=== PATIENT | male | born 1940 | race Asian ===

== ENCOUNTER 2019-05-19 14:28 | Inpatient (IN) | payer MEDICARE, OTHER ==
[~2019-05-19] VITALS: Ht 167.6 cm; Wt 67.1 kg
--- NOTE | 2019-05-19 14:32 | NUR ---
ED Nurse Note: PT BROUGHT IN BY R34 FROM PT'S PMD OFFICE. AOX4. PT C/O NAUSEA AND 3-5 EPISODES OF VOMITING X THIS AM. PT STATES HE WAS SENT TO ER "FOR SURGERY" BUT WHEN ASKED FOR WHAT, PT IS NOT AWARE. PT DENIES ABDOMINAL PAIN AT THIS TIME. ABDOMEN DOES NOT APPEAR DISTENDED AND BUT C/O TENDERNESS TO PALPATION IN LLQ. PT DENIES DIARRHEA. LAST BM X THIS AM WHICH PT STATES WAS FORMED. PER EMS, PT HAS HISTORY OF SUBSTANCE AND ALCOHOL ABUSE. PT STATES LAST ALCOHOL CONSUMPTION WAS 4 DAYS AGO. PER EMS, ORAL TEMP 102.0F. TEMP AT BEDSIDE, 99.4F. PT TACHYCARDIC - HR: 124, RR34, O2SAT: 88%. PT PLACED ON 4L O2 VIA NASAL CANNULA. RR30, O2 SAT: 97% ON 4L O2. DR GAMA AWARE.
--- NOTE | 2019-05-19 14:32 | NUR ---
Note undone in EDM - 05/19/19 at 1456 by ABIGAIL ED Nurse Note: PT BROUGHT IN BY R34 FROM PT'S PMD OFFICE. AOX4. PT C/O NAUSEA AND 3-5 EPISODES OF VOMITING X THIS AM. PT STATES HE WAS SENT TO ER "FOR SURGERY" BUT WHEN ASKED FOR WHAT, PT IS NOT AWARE. PT DENIES ABDOMINAL PAIN AT THIS TIME. ABDOMEN DOES NOT APPEAR DISTENDED AND BUT C/O TENDERNESS TO PALPATION IN LLQ. PT DENIES DIARRHEA. LAST BM X THIS AM WHICH PT STATES WAS FORMED. PER EMS, PT HAS HISTORY OF SUBSTANCE AND ALCOHOL ABUSE. PT STATES LAST ALCOHOL CONSUMPTION WAS 4 DAYS AGO. PER EMS, ORAL TEMP 102.0F. TEMP AT BEDSIDE, 99.4F.
--- NOTE | 2019-05-19 14:32 | NUR ---
Note undone in EDM - 05/19/19 at 1437 by ABIGAIL ED Nurse Note: PT BROUGHT IN BY R34 FROM PT'S PMD OFFICE. AOX4. PT C/O NAUSEA AND 3-5 EPISODES OF VOMITING X THIS AM. PT STATES HE WAS SENT TO ER "FOR SURGERY" BUT WHEN ASKED FOR WHAT, PT IS NOT AWARE. PT DENIES ABDOMINAL PAIN AT THIS TIME. ABDOMEN DOES NOT APPEAR DISTENDED AND BUT C/O TENDERNESS TO PALPATION IN LLQ. PT DENIES DIARRHEA. LAST BM X THIS AM WHICH PT STATES WAS FORMED. PER EMS, PT HAS HISTORY OF SUBSTANCE AND ALCOHOL ABUSE. PT STATES LAST ALCOHOL CONSUMPTION WAS 4 DAYS AGO.
--- NOTE | 2019-05-19 14:50 | NUR ---
ED Nurse Note: XRAY AT BEDSIDE.
--- NOTE | 2019-05-19 14:53 | Emergency Room Report ---
History of Present Illness General Chief Complaint: Nausea Source: Patient, EMS Present Illness HPI Patient presents from doctor's office with reports initially of abdominal pain and fever Currently however the patient denies any abdominal pain Denies any subjective fever Patient reports that he was having a difficult time sleeping last night denies any chest pain denies any dyspnea denies any back or flank pain he reports history of hypercholesterolemia Denies any diarrhea however the patient does have increased nausea and vomiting for the past 1-1/2 2 days Allergies: Coded Allergies: No Known Allergies (Unverified , 05/19/19) Patient History Past Medical History: see triage record Pertinent Family History: none Reviewed Nursing Documentation: PMH: Agreed; PSxH: Agreed Review of Systems All Other Systems: negative except mentioned in HPI Physical Exam Vital Signs Date Time Temp Pulse Resp B/P (MAP) Pulse Ox O2 Delivery O2 Flow Rate FiO2 05/19/19 14:23 102.0 115 16 148/92 (110) 98 Room Air Sp02 EP Interpretation: reviewed, normal General Appearance: well appearing, no apparent distress Head: normocephalic, atraumatic Eyes: bilateral eye PERRL, bilateral eye EOMI ENT: hearing grossly normal, TMs + canals normal, uvula midline, dry mucus membranes Neck: full range of motion, supple, no meningismus, no bony tend Respiratory: lungs clear, normal breath sounds, no rhonchi, no respiratory distress, no retraction, no accessory muscle use Cardiovascular #1: normal peripheral pulses, regular rate, rhythm, no edema, no gallop, no JVD, no murmur Gastrointestinal: normal bowel sounds, non tender, soft, no mass, no organomegaly, non-distended, no guarding, no hernia, no pulsatile mass, no rebound Genitourinary: no CVA tenderness Musculoskeletal: normal inspection Neurologic: oriented x3, responsive, thermostat maker III-XII nml as tested, motor strength/ tone normal, sensory intact Psychiatric: mood/affect normal Skin: no rash Lymphatic: normal inspection, no adenopathy Procedures Critical Care Time Critical Care Time 50 minutes for multiple re-evaluations initial critical presentation concern for respiratory failure endorgan injury and possible not including any procedural time Medical Decision Making Diagnostic Impression: Primary Impression: Empyema lung Additional Impression: Cholecystitis ER Course Patient presents with very limited complaints and is fairly stoic however patient is found to be tachycardic and had an initial elevated temperature at triage Infectious pathology such as pneumonia, appendicitis other pathology such as cardiac, cardiopulmonary, pathology or entertained patient requiring extensive work-up Patient's blood work reveals abnormal liver function test CT imaging is revealing also thickened gallbladder wall and some gallstones patient also does show evidence of right-sided empyema 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 which could potentially explain the empyema Upon arrival it was difficult to obtain full history and the patient's son was contacted He did provide information regarding the patient's primary physician who had seen him at the clinic I called [phone] There was a answering machine with the physician reporting to call a different number I did contact [phone] also received the same voicemail Therefore I was unfortunately unable to make contact with the patient's physician who saw the patient in the clinic Family is also unaware of any other input Received broad-spectrum antibiotics further hydration and surgical consultation admitted for further inpatient care Labs Test 05/19/19 14:35 05/19/19 14:56 05/19/19 15:16 05/19/19 15:44 White Blood Count 8.6 K/UL (4.8-10.8) Red Blood Count 4.17 M/UL (4.70-6.10) Hemoglobin 14.3 G/DL (14.2-18.0) Hematocrit 42.0 % (42.0-52.0) Mean Corpuscular Volume 101 FL (80-99) Mean Corpuscular Hemoglobin 34.3 PG (27.0-31.0) Mean Corpuscular Hemoglobin Concent 34.0 G/DL (32.0-36.0) Red Cell Distribution Width 11.6 % (11.6-14.8) Platelet Count 147 K/UL (150-450) Mean Platelet Volume 5.5 FL (6.5-10.1) Neutrophils (%) (Auto) % (45.0-75.0) Lymphocytes (%) (Auto) % (20.0-45.0) Monocytes (%) (Auto) % (1.0-10.0) Eosinophils (%) (Auto) % (0.0-3.0) Basophils (%) (Auto) % (0.0-2.0) Differential Total Cells Counted 100 Neutrophils % (Manual) 86 % (45-75) Lymphocytes % (Manual) 9 % (20-45) Monocytes % (Manual) 3 % (1-10) Eosinophils % (Manual) 0 % (0-3) Basophils % (Manual) 0 % (0-2) Band Neutrophils 2 % (0-8) Platelet Estimate Decreased Platelet Morphology Normal Red Blood Cell Morphology Normal Sodium Level 136 MMOL/L (136-145) Potassium Level 3.4 MMOL/L (3.5-5.1) Chloride Level 100 MMOL/L (98-107) Carbon Dioxide Level 29 MMOL/L (21-32) Anion Gap 7 mmol/L (5-15) Blood Urea Nitrogen 16 mg/dL (7-18) Creatinine 1.1 MG/DL (0.55-1.30) Estimat Glomerular Filtration Rate mL/min (>60) Glucose Level 128 MG/DL (74-106) Lactic Acid Level 2.00 mmol/L (0.4-2.0) Calcium Level 8.5 MG/DL (8.5-10.1) Total Bilirubin 2.2 MG/DL (0.2-1.0) Direct Bilirubin 1.5 MG/DL (0.0-0.3) Aspartate Amino Transf (AST/SGOT) 396 U/L (15-37) Alanine Aminotransferase (ALT/SGPT) 151 U/L (12-78) Alkaline Phosphatase 133 U/L (46-116) Total Creatine Kinase 101 U/L (26-308) Creatine Kinase MB 0.7 NG/ML (0.0-3.6) Creatine Kinase MB Relative Index 0.6 Troponin I 0.000 ng/mL (0.000-0.056) Pro-B-Type Natriuretic Peptide 302 pg/mL (0-125) Total Protein 7.0 G/DL (6.4-8.2) Albumin 3.7 G/DL (3.4-5.0) Globulin 3.3 g/dL Albumin/Globulin Ratio 1.1 (1.0-2.7) Lipase 237 U/L (73-393) Salicylates Level 0.5 ug/mL (2.8-20) Urine Opiates Screen Negative (NEGATIVE) Urine Barbiturates Screen Negative (NEGATIVE) Phencyclidine (PCP) Screen Negative (NEGATIVE) Urine Amphetamines Screen Negative (NEGATIVE) Urine Benzodiazepines Screen Negative (NEGATIVE) Urine Cocaine Screen Negative (NEGATIVE) Urine Marijuana (THC) Screen Negative (NEGATIVE) Serum Alcohol < 3 mg/dL Urine Color Yellow Urine Appearance Clear Urine pH 7 (4.5-8.0) Urine Specific [place] 1.005 (1.005-1.035) Urine Protein 2+ (NEGATIVE) Urine Glucose (UA) Negative (NEGATIVE) Urine Ketones Negative (NEGATIVE) Urine Blood 2+ (NEGATIVE) Urine Nitrite Negative (NEGATIVE) Urine Bilirubin Negative (NEGATIVE) Urine Urobilinogen Normal MG/DL (0.0-1.0) Urine Leukocyte Esterase Negative (NEGATIVE) Urine RBC 2-4 /HPF (0 - 0) Urine WBC 0-2 /HPF (0 - 0) Urine Squamous Epithelial Cells Occasional /LPF Urine Bacteria Few /HPF (NONE) Arterial Blood pH 7.446 (7.350-7.450) Arterial Blood Partial Pressure CO2 36.8 mmHg (35.0-45.0) Arterial Blood Partial Pressure O2 158.9 mmHg (75.0-100.0) Arterial Blood HCO3 24.8 mmol/L (22.0-26.0) Arterial Blood Oxygen Saturation 98.5 % (95-100) Arterial Blood Base Excess 1.0 (-2-2) Aníbal Test Positive Ammonia 17 umol/L (11-32) Rhythm Strip Diag. Results EP Interpretation: yes Rate: 112 Rhythm: no PVC's, no ectopy, other - sinus tach Chest X-Ray Diagnostic Results Chest X-Ray Diagnostic Results : Chest X-Ray Ordered: Yes # of Views/Limited/Complete: 1 View Indication: Shortness of Breath EP Interpretation: Yes Interpretation: no consolidation, no effusion, no pneumothorax Impression: No acute disease - Chronic parenchymal disease scarring Electronically Signed by: Jaime Mccloud, DO CT/MRI/US Diagnostic Results CT/MRI/US Diagnostic Results : Impression CTA chestImpression: No evidence of acute pulmonary embolus or other acute thoracic vascular pathology 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 Findings could represent scarring from prior tuberculosis, among other possibilities Pleural collection in the posterolateral inferior right costophrenic sulcus, discussed in detail on separate abdomen pelvis CT report. This could represent an empyema of uncertain acuity, possibly tuberculous in origin. CT abdomen pelvisImpression: Limited assessment of the GI tract, due to lack of enteric contrast administration Equivocal cholelithiasis. There is gallbladder wall thickening, could indicate acute cholecystitis. Correlate with clinical findings, consider hepatobiliary nuclear scan if there is high clinical suspicion Equivocal minimal wall thickening of the distal transverse and ascending colon, if real could indicate colitis, nonspecific as regards etiology Equivocal minimal bladder wall thickening and infiltration of the perivesical fat. Could indicate cystitis. Correlate with clinical and laboratory findings Posterolateral complex right-sided pleural fluid collection. Given evidence on prior chest CT angiogram performed the same time of old granulomatous changes within the lungs as well as the presence of rim calcification, it is quite possible this represents an empyema of uncertain age, possibly tuberculous in origin. Correlate with clinical history. Note that this is reported on this exam rather than the chest CT as it is included in its entirety on the current study Subcentimeter low-attenuation renal lesions, too small to characterize, most likely benign cortical cysts. No further follow-up necessary Other findings as noted, including degenerative spondylosis, accessory splenule, duodenal diverticula Last Vital Signs Date Time Temp Pulse Resp B/P (MAP) Pulse Ox O2 Delivery O2 Flow Rate FiO2 05/19/19 14:23 102.0 115 16 148/92 (110) 98 Room Air Status: improved Disposition: ADMITTED INPATIENT Condition: Critical Jaime Mccloud DO May 19, 2019 14:53
[2019-05-19 14:55] VITALS: BP 124/76
[2019-05-19] MEDS ORDERED: UNOBMED (14:58)
[2019-05-19 15:03] LABS: HEMOGLOBIN 14.3 G/DL (14.2-18.0); MEAN CORPUSCULAR VOLUME 101 FL (80-99); PLATELET COUNT 147 K/UL (150-450); RED BLOOD COUNT 4.17 M/UL (4.70-6.10); RED CELL DISTRIBUTION WIDTH 11.6 % (11.6-14.8); WHITE BLOOD COUNT 8.6 K/UL (4.8-10.8)
[2019-05-19 15:19] LABS: APPEARANCE,URINE CLEAR; BILIRUBIN, URINE NEGATIVE (NEGATIVE); GLUCOSE, URINE (UA) NEGATIVE (NEGATIVE); KETONES,URINE NEGATIVE (NEGATIVE); LEUKOCYTE ESTERASE ,URINE NEGATIVE (NEGATIVE); NITRITE,URINE NEGATIVE (NEGATIVE); PH,URINE 7 (4.5-8.0); PROTEIN,URINE 2+ (NEGATIVE); UROBILINOGEN,URINE NORMAL MG/DL (0.0-1.0)
--- NOTE | 2019-05-19 15:19 | NUR ---
ED Nurse Note: RT AT BEDSIDE.
[2019-05-19 15:21] LABS: COLOR,URINE YELLOW
[2019-05-19] MEDS ORDERED: Isovue-300 100ml vial INJ PRN (15:30)
[2019-05-19] MEDS ORDERED: Isovue-370 150ml vial INJ PRN (15:30)
[2019-05-19] MEDS ORDERED: Levalbuterol Inh UD 1.25mg/0.5ml HHN ONE (15:30)
[2019-05-19 15:43] LABS: ANION GAP 7 mmol/L (5-15); BLOOD UREA NITROGEN 16 mg/dL (7-18); CALCIUM 8.5 MG/DL (8.5-10.1); CARBON DIOXIDE 29 MMOL/L (21-32); CHLORIDE 100 MMOL/L (98-107); CREATININE 1.1 MG/DL (0.55-1.30); POTASSIUM 3.4 MMOL/L (3.5-5.1); SODIUM 136 MMOL/L (136-145)
[2019-05-19] MEDS ORDERED: Piperacillin/Tazobactam 3.375 GM in NS 110 ML IVPB ONE (15:45)
[2019-05-19 15:55] LABS: ALANINE AMINOTRANSFERASE 151 U/L (12-78); ALBUMIN 3.7 G/DL (3.4-5.0); ALBUMIN/GLOBULIN RATIO 1.1 (1.0-2.7); ALKALINE PHOSPHATASE 133 U/L (46-116); ASPARTATE AMINO TRANSFERASE 396 U/L (15-37); BILIRUBIN,TOTAL 2.2 MG/DL (0.2-1.0); CKMB 0.7 NG/ML (0.0-3.6); CREATINE KINASE 101 U/L (26-308)
--- NOTE | 2019-05-19 15:55 | NUR ---
ED Nurse Note: PT TO CT VIA JOHN PAUL.
[2019-05-19 15:58] LABS: BILIRUBIN,DIRECT 1.5 MG/DL (0.0-0.3)
--- NOTE | 2019-05-19 16:16 | Diagnostic Imaging Report ---
Indication: Chest pain Technique: One view of the chest Comparison: none Findings: Scarring and volume loss are seen in the upper lobes bilaterally. There is some associated pleural scarring as well. No definite acute infiltrates, effusions, or congestion. The heart size is normal. Impression: Chronic appearing upper lobe pleural and parenchymal disease bilaterally. No definite acute process
--- NOTE | 2019-05-19 17:03 | Diagnostic Imaging Report ---
Clinical Indication: Abdominal pain, nausea, vomiting Technique: No oral contrast utilized, per emergency room physician request IV administration nonionic contrast. Venous phase spiral acquisition obtained through the abdomen and pelvis. Multiplanar reconstructions were generated. Total dose length product 1102.03 mGycm. CTDIvol(s) 17.43,11.03 mGy. Dose reduction achieved using automated exposure control Comparison: none Findings: Lack of enteric contrast limits assessment of the GI tract. No evidence of diverticulosis or diverticulitis. There is equivocal minimal wall thickening of the distal transverse colon. There is equivocal mild wall thickening of the ascending colon as well. The appendix is normal. No small bowel distention. No free or loculated intraperitoneal gas or fluid is evident. The distal esophagus, stomach are unremarkable. There are multiple duodenal diverticula demonstrated. There are questionable small calculi in the gallbladder neck, apparently on the axial images. Gallbladder wall is edematous. No biliary ductal dilatation is evident. The liver, pancreas, spleen are unremarkable. There is an accessory splenule. The adrenals are unremarkable. The kidneys demonstrate multiple subcentimeter low-attenuation lesions which are too small to characterize, right greater than left, most likely benign simple cysts. No renal or ureteral calculi, hydronephrosis, or hydroureter. There is equivocal minimal bladder wall thickening and equivocal minimal infiltration of the perivesical fat. No pelvic mass or adenopathy. No retroperitoneal or mesenteric mass or adenopathy. Within the right posterior costophrenic sulcus, there is a low-attenuation collection which measures 10.7 x 4.5 x 8.7 cm. This demonstrates a thick mildly enhancing rim. Central contents are somewhat low in attenuation although higher than fluid. This demonstrates rim calcification. It is well-defined. Compressive atelectasis of the adjacent lung is noted. The bones demonstrate degenerative spondylosis changes. Impression: Limited assessment of the GI tract, due to lack of enteric contrast administration Equivocal cholelithiasis. There is gallbladder wall thickening, could indicate acute cholecystitis. Correlate with clinical findings, consider hepatobiliary nuclear scan if there is high clinical suspicion Equivocal minimal wall thickening of the distal transverse and ascending colon, if real could indicate colitis, nonspecific as regards etiology Equivocal minimal bladder wall thickening and infiltration of the perivesical fat. Could indicate cystitis. Correlate with clinical and laboratory findings Posterolateral complex right-sided pleural fluid collection. Given evidence on prior chest CT angiogram performed the same time of old granulomatous changes within the lungs as well as the presence of rim calcification, it is quite possible this represents an empyema of uncertain age, possibly tuberculous in origin. Correlate with clinical history. Note that this is reported on this exam rather than the chest CT as it is included in its entirety on the current study Subcentimeter low-attenuation renal lesions, too small to characterize, most likely benign cortical cysts. No further follow-up necessary Other findings as noted, including degenerative spondylosis, accessory splenule, duodenal diverticula The CT scanner at [facility] is accredited by the [employer] and the scans are performed using protocols designed to limit radiation exposure to as low as reasonably achievable to attain images of sufficient resolution adequate for diagnostic evaluation.
[2019-05-19 17:16] VITALS: BP 125/68
--- NOTE | 2019-05-19 17:17 | Diagnostic Imaging Report ---
ndication: Shortness of breath, cough Technique: IV administration nonionic contrast. Spiral acquisitions obtained from the lung bases to the lung apices. Multiplanar and 3-D reconstructions were generated. Total dose length product 1102.03 mGycm. CTDIvol(s) 17.43,11.03 mGy. Dose reduction achieved using automated exposure control Comparison: none Findings: Pulmonary arterial opacification is barely adequate, small peripheral emboli could conceivably be missed. In addition, there is some image degradation at the lung bases due to motion artifact No definite intraluminal filling defects or other findings to suggest acute pulmonary embolus are demonstrated. No only arterial dilatation or right ventricular dilatation demonstrated. No evidence of thoracic aortic aneurysm or dissection. There is normal anatomy of the proximal great neck vessels. Pleural and parenchymal scarring with calcification is seen in the lung apices bilaterally. There is considerable traction bronchiectasis, particularly in the right upper lobe. Peripheral interstitial septal thickening is seen in the lower lobes, particularly the left lower lobe. A bulla is seen in the right lower lobe. There is a pleural collection in the posterolateral inferior right costophrenic sulcus. This is incompletely included on the available images but is discussed in detail on separate abdomen pelvis CT report, where it is included in its entirety. Numerous calcific granulomata are seen scattered throughout both lungs. No definite dense consolidation is demonstrated. The heart is upper limits of normal in size. No pericardial effusion. The esophagus is unremarkable. No mediastinal or hilar mass or adenopathy. The thyroid is unremarkable. No axillary or chest wall mass or adenopathy. Impression: No evidence of acute pulmonary embolus or other acute thoracic vascular pathology 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 Findings could represent scarring from prior tuberculosis, among other possibilities Pleural collection in the posterolateral inferior right costophrenic sulcus, discussed in detail on separate abdomen pelvis CT report. This could represent an empyema of uncertain acuity, possibly tuberculous in origin. Findings discussed by phone with Dr. Mccloud in the emergency room at the time of interpretation The CT scanner at [facility] is accredited by the [employer] and the scans are performed using protocols designed to limit radiation exposure to as low as reasonably achievable to attain images of sufficient resolution adequate for diagnostic evaluation.
--- NOTE | 2019-05-19 18:23 | NUR ---
ED Nurse Note: [phone]
--- NOTE | 2019-05-19 18:33 | NUR ---
NURSE NOTES: Received telephone report from ER nurse Anuj DAMIAN.
--- NOTE | 2019-05-19 18:34 | NUR ---
ED Nurse Note: TELE UNIT CALLED FOR PT REPORT. REPORT GIVEN TO NATI BOLAND. RN READY TO ACCEPT PT. PT TAKEN UP TO TELE UNIT VIA GURNEY ON [employer] WITH ALL BELONGINGS ACCOMPANIED BY RN AND EMT. VSS.
--- NOTE | 2019-05-19 19:19 | NUR ---
HAND-OFF: Report given to Elie DAMIAN. Pt. remain stable.
--- NOTE | 2019-05-19 19:25 | NUR ---
NURSE NOTES: Received pt from NATI Peters. pt is awake and resting in bed. Pt breathing unlabored on 2L nasal cannula. library monitor on pt and vitals taken. Oriented pt to room and floor. Will contact Dr. Zuleta for admission orders.
--- NOTE | 2019-05-19 19:30 | NUR ---
NURSE NOTES: Pt can not recall which medications he takes at home. He states, "I will have my family bring in my home medications tomorrow."
--- NOTE | 2019-05-19 19:56 | Consultation ---
History of Present Illness General Date patient seen: May 19, 2019 Reason for Hospitalization: Nausea Present Illness HPI This is a very pleasant 78-year-old male who was at his doctor's office earlier today complaining of abdominal pain nausea and discomfort with feeling feverish. Patient's physician sent him over the emergency room for evaluation. In emergency department patient identified to have abnormal labs including elevated LFTs. CT and pelvis completed and identified gallbladder wall thickening and cholelithiasis concerning for possible acute cholangitis. Surgery was called to evaluate. Patient seen, [place], chart reviewed. Currently patient states he is feeling better and does not have as much pain. Currently no nausea or vomiting. Cannot remember last time he passed gas or had bowel movement but feels it was recently. States that he is not been hungry over the past 24 hours. Of note patient is a fairly poor historian. Allergies: Coded Allergies: No Known Allergies (Unverified , 05/19/19) Medication History Miscellaneous Medications Unable to Obtain Medications (Unable To Obtain Meds), (Reported) Patient History History Provided By: Patient, Medical Record, PMD Healthcare decision maker Resuscitation status Advanced Directive on File Past Medical/Surgical History Past Medical/Surgical History: (1) Sepsis (2) Cholecystitis (3) Empyema lung Review of Systems Review of Symptoms General ROS: no weight loss or fever Psychological ROS: no depression or mood changes, no memory loss Ophthalmic ROS: no visual changes or eye irritation ENT ROS: no nasal congestion, hearing loss, dizziness Allergy and Immunology ROS: no allergic symptoms or urticaria Hematological and Lymphatic ROS: no swollen glands, unusual bleeding or bruising Endocrine ROS: no polyuria, polydipsia, weight changes, temperature intolerance Respiratory ROS: no cough, shortness of breath, or wheezing Cardiovascular ROS: no chest pain or dyspnea on exertion Gastrointestinal ROS: denies abdominal pain, no bright red blood in stool. Musculoskeletal ROS: no myalgias or arthralgias Neurological ROS: no TIA or stroke symptoms Dermatological ROS: no new or changing skin lesions, rashes or pruritis Physical Exam Physical Exam General appearance: alert, cooperative, no distress, appears stated age Head: Normocephalic, without obvious abnormality, atraumatic Eyes: conjunctivae/corneas clear. PERRL, EOM's intact. Fundi benign Throat: Lips, mucosa, and tongue normal. Teeth and gums normal Neck: supple, symmetrical, trachea midline, no adenopathy, thyroid: not enlarged, symmetric, no tenderness/mass/nodules, no carotid bruit and no JVD Lungs: clear to auscultation bilaterally Heart: regular rate and rhythm, S1, S2 normal, no murmur, click, rub or gallop Abdomen: soft, non-tender. Bowel sounds normal. No masses, no organomegaly Extremities: extremities normal, atraumatic, no cyanosis or edema Pulses: 2+ and symmetric Skin: Skin color, texture, turgor normal. No rashes or lesions Neurologic: Grossly normal Last 24 Hour Vital Signs Date Time Temp Pulse Resp B/P (MAP) Pulse Ox O2 Delivery O2 Flow Rate FiO2 05/19/19 18:33 99.0 112 24 122/64 95 Nasal Cannula 2.0 05/19/19 18:04 114 26 Nasal Cannula 2.0 05/19/19 17:16 99.0 114 26 125/68 96 Nasal Cannula 2.0 05/19/19 15:57 125 25 98 Room Air 21 05/19/19 15:51 123 35 100 Non-Rebreather 15.0 100 05/19/19 15:50 123 35 100 Non-Rebreather 15.0 100 05/19/19 14:55 99.4 124 30 124/76 97 Nasal Cannula 4.0 05/19/19 14:23 102.0 115 16 148/92 (110) 98 Room Air Laboratory Tests Test 05/19/19 14:35 05/19/19 14:56 05/19/19 15:16 05/19/19 15:44 White Blood Count 8.6 K/UL (4.8-10.8) Red Blood Count 4.17 M/UL (4.70-6.10) L Hemoglobin 14.3 G/DL (14.2-18.0) Hematocrit 42.0 % (42.0-52.0) Mean Corpuscular Volume 101 FL (80-99) H Mean Corpuscular Hemoglobin 34.3 PG (27.0-31.0) H Mean Corpuscular Hemoglobin Concent 34.0 G/DL (32.0-36.0) Red Cell Distribution Width 11.6 % (11.6-14.8) Platelet Count 147 K/UL (150-450) L Mean Platelet Volume 5.5 FL (6.5-10.1) L Neutrophils (%) (Auto) % (45.0-75.0) Lymphocytes (%) (Auto) % (20.0-45.0) Monocytes (%) (Auto) % (1.0-10.0) Eosinophils (%) (Auto) % (0.0-3.0) Basophils (%) (Auto) % (0.0-2.0) Differential Total Cells Counted 100 Neutrophils % (Manual) 86 % (45-75) H Lymphocytes % (Manual) 9 % (20-45) L Monocytes % (Manual) 3 % (1-10) Eosinophils % (Manual) 0 % (0-3) Basophils % (Manual) 0 % (0-2) Band Neutrophils 2 % (0-8) Platelet Estimate Decreased L Platelet Morphology Normal Red Blood Cell Morphology Normal Sodium Level 136 MMOL/L (136-145) Potassium Level 3.4 MMOL/L (3.5-5.1) L Chloride Level 100 MMOL/L (98-107) Carbon Dioxide Level 29 MMOL/L (21-32) Anion Gap 7 mmol/L (5-15) Blood Urea Nitrogen 16 mg/dL (7-18) Creatinine 1.1 MG/DL (0.55-1.30) Estimat Glomerular Filtration Rate mL/min (>60) Glucose Level 128 MG/DL (74-106) H Lactic Acid Level 2.00 mmol/L (0.4-2.0) Calcium Level 8.5 MG/DL (8.5-10.1) Total Bilirubin 2.2 MG/DL (0.2-1.0) H Direct Bilirubin 1.5 MG/DL (0.0-0.3) H Aspartate Amino Transf (AST/SGOT) 396 U/L (15-37) H Alanine Aminotransferase (ALT/SGPT) 151 U/L (12-78) H Alkaline Phosphatase 133 U/L (46-116) H Total Creatine Kinase 101 U/L (26-308) Creatine Kinase MB 0.7 NG/ML (0.0-3.6) Creatine Kinase MB Relative Index 0.6 Troponin I 0.000 ng/mL (0.000-0.056) Pro-B-Type Natriuretic Peptide 302 pg/mL (0-125) H Total Protein 7.0 G/DL (6.4-8.2) Albumin 3.7 G/DL (3.4-5.0) Globulin 3.3 g/dL Albumin/Globulin Ratio 1.1 (1.0-2.7) Lipase 237 U/L (73-393) Salicylates Level 0.5 ug/mL (2.8-20) L Urine Opiates Screen Negative (NEGATIVE) Urine Barbiturates Screen Negative (NEGATIVE) Phencyclidine (PCP) Screen Negative (NEGATIVE) Urine Amphetamines Screen Negative (NEGATIVE) Urine Benzodiazepines Screen Negative (NEGATIVE) Urine Cocaine Screen Negative (NEGATIVE) Urine Marijuana (THC) Screen Negative (NEGATIVE) Serum Alcohol < 3 mg/dL Urine Color Yellow Urine Appearance Clear Urine pH 7 (4.5-8.0) Urine Specific [place] 1.005 (1.005-1.035) Urine Protein 2+ (NEGATIVE) H Urine Glucose (UA) Negative (NEGATIVE) Urine Ketones Negative (NEGATIVE) Urine Blood 2+ (NEGATIVE) H Urine Nitrite Negative (NEGATIVE) Urine Bilirubin Negative (NEGATIVE) Urine Urobilinogen Normal MG/DL (0.0-1.0) Urine Leukocyte Esterase Negative (NEGATIVE) Urine RBC 2-4 /HPF (0 - 0) H Urine WBC 0-2 /HPF (0 - 0) Urine Squamous Epithelial Cells Occasional /LPF Urine Bacteria Few /HPF (NONE) Arterial Blood pH 7.446 (7.350-7.450) Arterial Blood Partial Pressure CO2 36.8 mmHg (35.0-45.0) Arterial Blood Partial Pressure O2 158.9 mmHg (75.0-100.0) H Arterial Blood HCO3 24.8 mmol/L (22.0-26.0) Arterial Blood Oxygen Saturation 98.5 % (95-100) Arterial Blood Base Excess 1.0 (-2-2) Aníbal Test Positive Ammonia 17 umol/L (11-32) Height (Feet): 5 Height (Inches): 6.00 Weight (Pounds): 160 Medications Current Medications Medications (Trade) Dose Ordered Sig/Genet Route PRN Reason Start Time Stop Time Status Last Admin Dose Admin Iopamidol (Isovue-300 100ml) 100 ml NOW PRN INJ Radiology Procedure 05/19/19 15:30 Iopamidol (Isovue-370 150ml) 150 ml NOW PRN INJ Radiology Procedure 05/19/19 15:30 05/21/19 15:21 Piperacillin Sod/ Tazobactam Sod 3.375 gm/Sodium Chloride 110 ml @ 27.5 mls/hr EVERY 8 HOURS IVPB 05/19/19 22:00 05/24/19 21:59 Potassium Chloride/Sodium Chloride 1,000 ml @ 100 mls/hr Q10H IV 05/19/19 21:00 06/18/19 20:59 Assessment/Plan Problem List: (1) Cholecystitis Assessment & Plan: This is a 78-year-old male with abdominal pain, nausea, elevated LFTs. CT scan with concerns for cholecystitis given gallbladder wall thickening. Since admission patient given medication and has been feeling better. Denies any current abdominal pain nausea or emesis. Admit to hospital for evaluation and work-up. N.p.o. IV fluids IV Abx Abdominal Ultrasound GI consult AM labs thank you will follow with recs ICD Codes: K81.9 - Cholecystitis, unspecified SNOMED: 11519836 (2) Empyema lung ICD Codes: J86.9 - Pyothorax without fistula SNOMED: 361965425 (3) Sepsis ICD Codes: A41.9 - Sepsis, unspecified organism SNOMED: 87377651 Maynor Wall May 19, 2019 19:55
[2019-05-19 20:01] VITALS: BP 103/68
--- NOTE | 2019-05-19 20:52 | NUR ---
NURSE NOTES: Talia from Ultrasound stated shes having technical issues and the ultrasound will be postponed till tomorrow.
[2019-05-19] MEDS: NS w/KCl 20mEq 1000ml 1,000 ML IV SCH (21:11)
[2019-05-19] MEDS: Piperacillin/Tazobactam 3.375 GM in NS 110 ML IVPB SCH (22:37)
[2019-05-20] VITALS (7 sets, daily range): BP systolic 114–126; BP diastolic 69–73
[2019-05-20] MEDS: Piperacillin/Tazobactam 3.375 GM in NS 110 ML IVPB SCH ×3 (06:13→21:31)
[2019-05-20] MEDS: NS w/KCl 20mEq 1000ml 1,000 ML IV SCH ×2 (07:00→13:50)
[2019-05-20 07:15] LABS: HEMATOCRIT 37.9 % (42.0-52.0); HEMOGLOBIN 12.9 G/DL (14.2-18.0); MEAN CORPUSCULAR VOLUME 101 FL (80-99); PLATELET COUNT 132 K/UL (150-450); RED BLOOD COUNT 3.75 M/UL (4.70-6.10); RED CELL DISTRIBUTION WIDTH 12.2 % (11.6-14.8); WHITE BLOOD COUNT 9.5 K/UL (4.8-10.8)
--- NOTE | 2019-05-20 07:15 | NUR ---
HAND-OFF: Report given to NATI Lynch. Pt is awake and resting in bed in no acute distress. IV site intact and patent. Bed locked in lowest position, call light within reach. Endorsed plan of care.
--- NOTE | 2019-05-20 07:15 | NUR ---
NURSE NOTES: Received report from Elie DAMIAN. Pr lying in bed and AO X4. No c/o pain at this time. No acute distress noted. Reinforced NPO. SR rhythm noted on the monitor. On O2 2LPM via N/C. Pt scheduled for abdominal US today. IV RAC 20G running with NS with 20mEq KCL @100cc/hr, patent and asymptomatic. Bed in lowest position and locked. Will continue to plan of care.
[2019-05-20 07:37] LABS: ALANINE AMINOTRANSFERASE 184 U/L (12-78); ALKALINE PHOSPHATASE 93 U/L (46-116); ANION GAP 7 mmol/L (5-15); ASPARTATE AMINO TRANSFERASE 237 U/L (15-37); BILIRUBIN,TOTAL 1.4 MG/DL (0.2-1.0); BLOOD UREA NITROGEN 14 mg/dL (7-18); CALCIUM 7.7 MG/DL (8.5-10.1); CARBON DIOXIDE 26 MMOL/L (21-32); CHLORIDE 107 MMOL/L (98-107); POTASSIUM 3.6 MMOL/L (3.5-5.1); SODIUM 140 MMOL/L (136-145)
[2019-05-20 07:38] LABS: BILIRUBIN,DIRECT 0.5 MG/DL (0.0-0.3)
--- NOTE | 2019-05-20 08:51 | NUR ---
CASE MANAGEMENT:REVIEW 78 YR OLD MALE MY FROM HOME CC: NAUSEA, ABDOMINAL PAIN AND FEVER SI: SEPSIS. ACUTE CHOLECYSTITIS. EMPYEMA LUNG 102.0 115 16 148/92 98% ON RA PLT-147 K-3.4 TBILI+2.2 DBILI+1.5 AST/ALT+396/151 IS: 1L NS BOLUS ALBUTEROL HHN 1L NS BOLUS IV ZOSYN CT ABD/PELVIS CTA CHEST CHEST XRAY BLOOD CX : TO TELEMETRY Addendum: 05/20/19 at 0907 by SVETA MALONE, MEDICAL NUMERICAL CONTROL OPERATOR MEDICAL NUMERICAL CONTROL OPERATOR INTERQUAL CRITERIA MET
[2019-05-20] MEDS: Heparin 5000 units/ml inj SUBQ SCH ×2 (08:53→21:00)
--- NOTE | 2019-05-20 09:53 | NUR ---
*-* N0 INSURANCE INFORMATION IN THE BAR UNABLE TO SEND CLINICALS OR REVIEWS *-*
--- NOTE | 2019-05-20 11:34 | Diagnostic Imaging Report ---
Indication: Abdominal pain Technique: Grayscale and duplex Doppler imaging of the abdomen performed. Comparison: None Findings: The liver is unremarkable. Doppler interrogation of the main portal vein shows patency with hepatopedal, monophasic flow. There is no biliary ductal dilatation identified. Gallbladder wall thickening noted. Sonographic Garcia's sign was negative per technologist. CBD is 3.7 mm There demonstrated part of the pancreas, aorta and IVC show no definite abnormalities. Both kidneys appear unremarkable. There is a small right renal cyst. There is no hydronephrosis. There is a right pleural effusion. IMPRESSION: Gallbladder wall thickening nonspecific. Right pleural effusion Right renal cyst
[2019-05-20] MEDS ORDERED: Albuterol/Ipratropium 3ml neb HHN PRN (12:15)
--- NOTE | 2019-05-20 14:57 | Pulmonology Progress Note ---
Assessment/Plan Assessment/Plan Pulmonary Progress Note: Patient is a 78-year-old male admitted complaining of abdominal pain nausea and discomfort after drinking carbonated beverages, c/o feeling feverish. In the ED noted to have abnormal labs including elevated LFTs. CT and pelvis completed and identified gallbladder wall thickening and cholelithiasis concerning for possible acute cholangitis. Currently patient states he is feeling better and does not have as much pain. Has no nausea or vomiting. Denies cough, SOB, hemoptysis. 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 Previous empyema requiring drainage. Denies Asthma. Has excellent effort tolerance. No occupational dust exposure, denies recent travel. Allergies: No Known Allergies Past Medical/Surgical History: (1) Sepsis (2) Cholecystitis (3) Empyema lung Review of Systems Review of Symptoms General ROS: no weight loss or fever Psychological ROS: no depression or mood changes, no memory loss Ophthalmic ROS: no visual changes or eye irritation ENT ROS: no nasal congestion, hearing loss, dizziness Allergy and Immunology ROS: no allergic symptoms or urticaria Hematological and Lymphatic ROS: no swollen glands, unusual bleeding or bruising Endocrine ROS: no polyuria, polydipsia, weight changes, temperature intolerance Respiratory ROS: no cough, shortness of breath, or wheezing Cardiovascular ROS: no chest pain or dyspnea on exertion Gastrointestinal ROS: denies abdominal pain, no bright red blood in stool. Musculoskeletal ROS: no myalgias or arthralgias Neurological ROS: no TIA or stroke symptoms Dermatological ROS: no new or changing skin lesions, rashes or pruritis Physical Exam Physical Exam Vital signs noted General appearance: alert, cooperative, no distress, appears stated age Head: Normocephalic, without obvious abnormality, atraumatic Eyes: conjunctivae/corneas clear. PERRL, EOM's intact. Fundi benign Throat: Lips, mucosa, and tongue normal. Teeth and gums normal Neck: supple, symmetrical, trachea midline, no adenopathy, thyroid: not enlarged, symmetric, no tenderness/mass/nodules, no carotid bruit and no JVD Lungs: clear to auscultation bilaterally Heart: regular rate and rhythm, S1, S2 normal, no murmur, click, rub or gallop Abdomen: soft, non-tender. Bowel sounds normal. No masses, no organomegaly Extremities: extremities normal, atraumatic, no cyanosis or edema Pulses: 2+ and symmetric Skin: Skin color, texture, turgor normal. No rashes or lesions Neurologic: Grossly normal Last 24 Hour Vital Signs Date Time Temp Pulse Resp B/P (MAP) Pulse Ox O2 Delivery O2 Flow Rate FiO2 05/19/19 18:33 99.0 112 24 122/64 95 Nasal Cannula 2.0 05/19/19 18:04 114 26 Nasal Cannula 2.0 05/19/19 17:16 99.0 114 26 125/68 96 Nasal Cannula 2.0 05/19/19 15:57 125 25 98 Room Air 21 05/19/19 15:51 123 35 100 Non-Rebreather 15.0 100 05/19/19 15:50 123 35 100 Non-Rebreather 15.0 100 05/19/19 14:55 99.4 124 30 124/76 97 Nasal Cannula 4.0 05/19/19 14:23 102.0 115 16 148/92 (110) 98 Room Air Laboratory Tests Test 05/19/19 14:35 05/19/19 14:56 05/19/19 15:16 05/19/19 15:44 White Blood Count 8.6 K/UL (4.8-10.8) Red Blood Count 4.17 M/UL (4.70-6.10) L Hemoglobin 14.3 G/DL (14.2-18.0) Hematocrit 42.0 % (42.0-52.0) Mean Corpuscular Volume 101 FL (80-99) H Mean Corpuscular Hemoglobin 34.3 PG (27.0-31.0) H Mean Corpuscular Hemoglobin Concent 34.0 G/DL (32.0-36.0) Red Cell Distribution Width 11.6 % (11.6-14.8) Platelet Count 147 K/UL (150-450) L Mean Platelet Volume 5.5 FL (6.5-10.1) L Neutrophils (%) (Auto) % (45.0-75.0) Lymphocytes (%) (Auto) % (20.0-45.0) Monocytes (%) (Auto) % (1.0-10.0) Eosinophils (%) (Auto) % (0.0-3.0) Basophils (%) (Auto) % (0.0-2.0) Differential Total Cells Counted 100 Neutrophils % (Manual) 86 % (45-75) H Lymphocytes % (Manual) 9 % (20-45) L Monocytes % (Manual) 3 % (1-10) Eosinophils % (Manual) 0 % (0-3) Basophils % (Manual) 0 % (0-2) Band Neutrophils 2 % (0-8) Platelet Estimate Decreased L Platelet Morphology Normal Red Blood Cell Morphology Normal Sodium Level 136 MMOL/L (136-145) Potassium Level 3.4 MMOL/L (3.5-5.1) L Chloride Level 100 MMOL/L (98-107) Carbon Dioxide Level 29 MMOL/L (21-32) Anion Gap 7 mmol/L (5-15) Blood Urea Nitrogen 16 mg/dL (7-18) Creatinine 1.1 MG/DL (0.55-1.30) Estimat Glomerular Filtration Rate mL/min (>60) Glucose Level 128 MG/DL (74-106) H Lactic Acid Level 2.00 mmol/L (0.4-2.0) Calcium Level 8.5 MG/DL (8.5-10.1) Total Bilirubin 2.2 MG/DL (0.2-1.0) H Direct Bilirubin 1.5 MG/DL (0.0-0.3) H Aspartate Amino Transf (AST/SGOT) 396 U/L (15-37) H Alanine Aminotransferase (ALT/SGPT) 151 U/L (12-78) H Alkaline Phosphatase 133 U/L (46-116) H Total Creatine Kinase 101 U/L (26-308) Creatine Kinase MB 0.7 NG/ML (0.0-3.6) Creatine Kinase MB Relative Index 0.6 Troponin I 0.000 ng/mL (0.000-0.056) Pro-B-Type Natriuretic Peptide 302 pg/mL (0-125) H Total Protein 7.0 G/DL (6.4-8.2) Albumin 3.7 G/DL (3.4-5.0) Globulin 3.3 g/dL Albumin/Globulin Ratio 1.1 (1.0-2.7) Lipase 237 U/L (73-393) Salicylates Level 0.5 ug/mL (2.8-20) L Urine Opiates Screen Negative (NEGATIVE) Urine Barbiturates Screen Negative (NEGATIVE) Phencyclidine (PCP) Screen Negative (NEGATIVE) Urine Amphetamines Screen Negative (NEGATIVE) Urine Benzodiazepines Screen Negative (NEGATIVE) Urine Cocaine Screen Negative (NEGATIVE) Urine Marijuana (THC) Screen Negative (NEGATIVE) Serum Alcohol < 3 mg/dL Urine Color Yellow Urine Appearance Clear Urine pH 7 (4.5-8.0) Urine Specific [place] 1.005 (1.005-1.035) Urine Protein 2+ (NEGATIVE) H Urine Glucose (UA) Negative (NEGATIVE) Urine Ketones Negative (NEGATIVE) Urine Blood 2+ (NEGATIVE) H Urine Nitrite Negative (NEGATIVE) Urine Bilirubin Negative (NEGATIVE) Urine Urobilinogen Normal MG/DL (0.0-1.0) Urine Leukocyte Esterase Negative (NEGATIVE) Urine RBC 2-4 /HPF (0 - 0) H Urine WBC 0-2 /HPF (0 - 0) Urine Squamous Epithelial Cells Occasional /LPF Urine Bacteria Few /HPF (NONE) Arterial Blood pH 7.446 (7.350-7.450) Arterial Blood Partial Pressure CO2 36.8 mmHg (35.0-45.0) Arterial Blood Partial Pressure O2 158.9 mmHg (75.0-100.0) H Arterial Blood HCO3 24.8 mmol/L (22.0-26.0) Arterial Blood Oxygen Saturation 98.5 % (95-100) Arterial Blood Base Excess 1.0 (-2-2) Aníbal Test Positive Ammonia 17 umol/L (11-32) CT Chest: No evidence of acute pulmonary embolus or other acute thoracic vascular pathology 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 Findings could represent scarring from prior tuberculosis, among other possibilities Pleural collection in the posterolateral inferior right costophrenic sulcus, discussed in detail on separate abdomen pelvis CT report. This could represent an empyema of uncertain acuity, possibly tuberculous in origin. Height (Feet): 5 Height (Inches): 6.00 Weight (Pounds): 160 Medications Current Medications Medications (Trade) Dose Ordered Sig/Genet Route PRN Reason Start Time Stop Time Status Last Admin Dose Admin Iopamidol (Isovue-300 100ml) 100 ml NOW PRN INJ Radiology Procedure 05/19/19 15:30 Iopamidol (Isovue-370 150ml) 150 ml NOW PRN INJ Radiology Procedure 05/19/19 15:30 05/21/19 15:21 Piperacillin Sod/ Tazobactam Sod 3.375 gm/Sodium Chloride 110 ml @ 27.5 mls/hr EVERY 8 HOURS IVPB 05/19/19 22:00 05/24/19 21:59 Potassium Chloride/Sodium Chloride 1,000 ml @ 100 mls/hr Q10H IV 05/19/19 21:00 06/18/19 20:59 Assessment/Plan Problem List: (1) Cholecystitis Admit to hospital for evaluation and work-up. N.p.o. IV fluids IV Abx AM labs O2 PRN HHN PRN PPX Monitor labs ICD Codes: K81.9 - Cholecystitis, unspecified SNOMED: 81144203 (2) Previous Tuberculosis/Empyema lung Chronic changes on CT chest Subjective ROS Limited/Unobtainable: No Allergies: Coded Allergies: No Known Allergies (Unverified , 05/19/19) Objective Last 24 Hour Vital Signs Date Time Temp Pulse Resp B/P (MAP) Pulse Ox O2 Delivery O2 Flow Rate FiO2 05/20/19 12:00 98.0 77 22 122/73 (89) 94 05/20/19 09:00 Nasal Cannula 2.0 05/20/19 08:00 67 05/20/19 08:00 98.6 83 21 125/69 (87) 99 05/20/19 04:00 87 05/20/19 04:00 98.0 87 19 114/69 (84) 97 05/20/19 01:10 Nasal Cannula 2.0 05/20/19 00:00 98.9 74 19 118/71 (87) 96 05/20/19 00:00 74 05/19/19 20:01 99.2 92 22 103/68 (80) 93 05/19/19 20:00 92 05/19/19 19:12 101 05/19/19 18:33 99.0 112 24 122/64 95 Nasal Cannula 2.0 05/19/19 18:04 114 26 Nasal Cannula 2.0 05/19/19 17:16 99.0 114 26 125/68 96 Nasal Cannula 2.0 05/19/19 15:57 125 25 98 Room Air 21 05/19/19 15:51 123 35 100 Non-Rebreather 15.0 100 05/19/19 15:50 123 35 100 Non-Rebreather 15.0 100 05/19/19 14:55 99.4 124 30 124/76 97 Nasal Cannula 4.0 Intake and Output 05/19/19 05/20/19 19:00 07:00 Output Total 500 ml Balance -500 ml Output Urine Total 500 ml # Voids 1 2 Laboratory Tests 05/19/19 14:56: Urine Color Yellow, Urine Appearance Clear, Urine pH 7, Urine Specific [place] 1.005, Urine Protein 2+H, Urine Glucose (UA) Negative, Urine Ketones Negative, Urine Blood 2+H, Urine Nitrite Negative, Urine Bilirubin Negative, Urine Urobilinogen Normal, Urine Leukocyte Esterase Negative, Urine RBC 2-4H, Urine WBC 0-2, Urine Squamous Epithelial Cells Occasional, Urine Bacteria Few 05/19/19 15:16: Arterial Blood pH 7.446, Arterial Blood Partial Pressure CO2 36.8, Arterial Blood Partial Pressure O2 158.9H, Arterial Blood HCO3 24.8, Arterial Blood Oxygen Saturation 98.5, Arterial Blood Base Excess 1.0, Aníbal Test Positive 05/19/19 15:44: Ammonia 17 05/20/19 05:48: White Blood Count 9.5, Red Blood Count 3.75L, Hemoglobin 12.9L, Hematocrit 37.9L , Mean Corpuscular Volume 101H, Mean Corpuscular Hemoglobin 34.4H, Mean Corpuscular Hemoglobin Concent 34.0, Red Cell Distribution Width 12.2, Platelet Count 132L, Mean Platelet Volume 6.7, Neutrophils (%) (Auto) , Lymphocytes (%) ( Auto) , Monocytes (%) (Auto) , Eosinophils (%) (Auto) , Basophils (%) (Auto) , Differential Total Cells Counted 100, Neutrophils % (Manual) 93H, Lymphocytes % (Manual) 4L, Monocytes % (Manual) 3, Eosinophils % (Manual) 0, Basophils % ( Manual) 0, Band Neutrophils 0, Platelet Estimate DecreasedL, Platelet Morphology Normal, Macrocytosis 1+, Prothrombin Time 11.0, Prothromb Time International Ratio 1.0, Activated Partial Thromboplast Time 29, Sodium Level 140, Potassium Level 3.6, Chloride Level 107, Carbon Dioxide Level 26, Anion Gap 7, Blood Urea Nitrogen 14, Creatinine 1.0, Estimat Glomerular Filtration Rate , Glucose Level 91, Calcium Level 7.7L, Magnesium Level 1.5L, Total Bilirubin 1.4H, Direct Bilirubin 0.5H, Aspartate Amino Transf (AST/SGOT) 237H, Alanine Aminotransferase (ALT/SGPT) 184H, Alkaline Phosphatase 93, Pro-B-Type Natriuretic Peptide 1073H, Total Protein 6.0L, Albumin 3.0L, Globulin 3.0, Albumin/Globulin Ratio 1.0, Vitamin B12 Level 799, Folate 19.8, Thyroid Stimulating Hormone (TSH) 0.086L Current Medications Medications (Trade) Dose Ordered Sig/Genet Route PRN Reason Start Time Stop Time Status Last Admin Dose Admin Albuterol/ Ipratropium (Albuterol/ Ipratropium) 3 ml Q6H PRN HHN Shortness of Breath 05/20/19 12:15 05/25/19 12:14 Heparin Sodium (Porcine) (Heparin 5000 units/ml) 5,000 units EVERY 12 HOURS SUBQ 05/20/19 09:00 06/19/19 08:59 05/20/19 08:53 Ondansetron HCl (Zofran) 4 mg Q6H PRN IVP Nausea & Vomiting 05/19/19 22:00 06/18/19 21:59 Piperacillin Sod/ Tazobactam Sod 3.375 gm/Sodium Chloride 110 ml @ 27.5 mls/hr EVERY 8 HOURS IVPB 05/19/19 22:00 05/24/19 21:59 05/20/19 13:49 Potassium Chloride/Sodium Chloride 1,000 ml @ 100 mls/hr Q10H IV 05/19/19 21:00 06/18/19 20:59 05/20/19 13:50 Haider Pacheco MD May 20, 2019 14:57
--- NOTE | 2019-05-20 15:11 | NUR ---
*-* INSURAMNCE *-* ALL CLINICALS AND REVIEWS HAVE BEEN FAXED TO: [facility] P: [phone] F: [phone] (FAX CLINICALS)
--- NOTE | 2019-05-20 15:36 | Cardiology Report ---
APPROVED REPORT EKG Measurement Heart [id number] Sinus tachycardia Possible Left atrial enlargement Borderline ECG
--- NOTE | 2019-05-20 15:39 | Surgery Progress Note ---
Surgery Progress Note Subjective Symptoms: improved, pain absent, voiding well, passing flatus Additional Comments Patient seen and examined at bedside. Has no complaints today. States he feels very well. No nausea vomiting fever chills. Labs improved. Ultrasound noted. Objective Last 24 Hour Vital Signs Date Time Temp Pulse Resp B/P (MAP) Pulse Ox O2 Delivery O2 Flow Rate FiO2 05/20/19 12:00 79 05/20/19 12:00 98.0 77 22 122/73 (89) 94 05/20/19 09:00 Nasal Cannula 2.0 05/20/19 08:00 67 05/20/19 08:00 98.6 83 21 125/69 (87) 99 05/20/19 04:00 87 05/20/19 04:00 98.0 87 19 114/69 (84) 97 05/20/19 01:10 Nasal Cannula 2.0 05/20/19 00:00 98.9 74 19 118/71 (87) 96 05/20/19 00:00 74 05/19/19 20:01 99.2 92 22 103/68 (80) 93 05/19/19 20:00 92 05/19/19 19:12 101 05/19/19 18:33 99.0 112 24 122/64 95 Nasal Cannula 2.0 05/19/19 18:04 114 26 Nasal Cannula 2.0 05/19/19 17:16 99.0 114 26 125/68 96 Nasal Cannula 2.0 05/19/19 15:57 125 25 98 Room Air 21 05/19/19 15:51 123 35 100 Non-Rebreather 15.0 100 05/19/19 15:50 123 35 100 Non-Rebreather 15.0 100 I&O Intake and Output 05/19/19 05/20/19 19:00 07:00 Output Total 500 ml Balance -500 ml Output Urine Total 500 ml # Voids 1 2 Cardiovascular: RSR Respiratory: clear Abdomen: soft, flat, non-tender, present bowel sounds, non-distended Extremities: no cyanosis Laboratory Tests Test 05/19/19 15:44 05/20/19 05:48 Ammonia 17 umol/L (11-32) White Blood Count 9.5 K/UL (4.8-10.8) Red Blood Count 3.75 M/UL (4.70-6.10) L Hemoglobin 12.9 G/DL (14.2-18.0) L Hematocrit 37.9 % (42.0-52.0) L Mean Corpuscular Volume 101 FL (80-99) H Mean Corpuscular Hemoglobin 34.4 PG (27.0-31.0) H Mean Corpuscular Hemoglobin Concent 34.0 G/DL (32.0-36.0) Red Cell Distribution Width 12.2 % (11.6-14.8) Platelet Count 132 K/UL (150-450) L Mean Platelet Volume 6.7 FL (6.5-10.1) Neutrophils (%) (Auto) % (45.0-75.0) Lymphocytes (%) (Auto) % (20.0-45.0) Monocytes (%) (Auto) % (1.0-10.0) Eosinophils (%) (Auto) % (0.0-3.0) Basophils (%) (Auto) % (0.0-2.0) Differential Total Cells Counted 100 Neutrophils % (Manual) 93 % (45-75) H Lymphocytes % (Manual) 4 % (20-45) L Monocytes % (Manual) 3 % (1-10) Eosinophils % (Manual) 0 % (0-3) Basophils % (Manual) 0 % (0-2) Band Neutrophils 0 % (0-8) Platelet Estimate Decreased L Platelet Morphology Normal Macrocytosis 1+ Prothrombin Time 11.0 SEC (9.30-11.50) Prothromb Time International Ratio 1.0 (0.9-1.1) Activated Partial Thromboplast Time 29 SEC (23-33) Sodium Level 140 MMOL/L (136-145) Potassium Level 3.6 MMOL/L (3.5-5.1) Chloride Level 107 MMOL/L (98-107) Carbon Dioxide Level 26 MMOL/L (21-32) Anion Gap 7 mmol/L (5-15) Blood Urea Nitrogen 14 mg/dL (7-18) Creatinine 1.0 MG/DL (0.55-1.30) Estimat Glomerular Filtration Rate mL/min (>60) Glucose Level 91 MG/DL (74-106) Calcium Level 7.7 MG/DL (8.5-10.1) L Magnesium Level 1.5 MG/DL (1.8-2.4) L Total Bilirubin 1.4 MG/DL (0.2-1.0) H Direct Bilirubin 0.5 MG/DL (0.0-0.3) H Aspartate Amino Transf (AST/SGOT) 237 U/L (15-37) H Alanine Aminotransferase (ALT/SGPT) 184 U/L (12-78) H Alkaline Phosphatase 93 U/L (46-116) Pro-B-Type Natriuretic Peptide 1073 pg/mL (0-125) H Total Protein 6.0 G/DL (6.4-8.2) L Albumin 3.0 G/DL (3.4-5.0) L Globulin 3.0 g/dL Albumin/Globulin Ratio 1.0 (1.0-2.7) Vitamin B12 Level 799 PG/ML (193-986) Folate 19.8 NG/ML (8.6-58.9) Thyroid Stimulating Hormone (TSH) 0.086 uiU/mL (0.358-3.740) Plan Problems: (1) Cholecystitis Assessment & Plan: This is a 78-year-old male with abdominal pain, nausea, elevated LFTs. CT scan with concerns for cholecystitis given gallbladder wall thickening. Since admission patient given medication and has been feeling better. Denies any current abdominal pain nausea or emesis. LFT's improved t bili trending down lipase normal US noted as below The liver is unremarkable. Doppler interrogation of the main portal vein shows patency with hepatopedal, monophasic flow. There is no biliary ductal dilatation identified. Gallbladder wall thickening noted. Sonographic Garcia's sign was negative per technologist. CBD is 3.7 mm There demonstrated part of the pancreas, aorta and IVC show no definite abnormalities. no acute surgical intervention planned okay for trial oral diet trend labs Hepatitis panel AM labs thank you will follow with recs (2) Empyema lung (3) Sepsis Maynor Wall May 20, 2019 15:39
--- NOTE | 2019-05-20 16:42 | General Progress Note ---
Assessment/Plan Assessment/Plan: GI CONSULT Dictated Declining LFT - Passed stone vs cholecystis, favor former Will check MRCP Advance diet as tolerated Thank you Sachin Nesbitt MD Subjective Allergies: Coded Allergies: No Known Allergies (Unverified , 05/19/19) Objective Last 24 Hour Vital Signs Date Time Temp Pulse Resp B/P (MAP) Pulse Ox O2 Delivery O2 Flow Rate FiO2 05/20/19 12:00 79 05/20/19 12:00 98.0 77 22 122/73 (89) 94 05/20/19 09:00 Nasal Cannula 2.0 05/20/19 08:00 67 05/20/19 08:00 98.6 83 21 125/69 (87) 99 05/20/19 04:00 87 05/20/19 04:00 98.0 87 19 114/69 (84) 97 05/20/19 01:10 Nasal Cannula 2.0 05/20/19 00:00 98.9 74 19 118/71 (87) 96 05/20/19 00:00 74 05/19/19 20:01 99.2 92 22 103/68 (80) 93 05/19/19 20:00 92 05/19/19 19:12 101 05/19/19 18:33 99.0 112 24 122/64 95 Nasal Cannula 2.0 05/19/19 18:04 114 26 Nasal Cannula 2.0 05/19/19 17:16 99.0 114 26 125/68 96 Nasal Cannula 2.0 Intake and Output 05/19/19 05/20/19 19:00 07:00 Output Total 500 ml Balance -500 ml Output Urine Total 500 ml # Voids 1 2 Laboratory Tests 05/20/19 05:48: White Blood Count 9.5, Red Blood Count 3.75L, Hemoglobin 12.9L, Hematocrit 37.9L , Mean Corpuscular Volume 101H, Mean Corpuscular Hemoglobin 34.4H, Mean Corpuscular Hemoglobin Concent 34.0, Red Cell Distribution Width 12.2, Platelet Count 132L, Mean Platelet Volume 6.7, Neutrophils (%) (Auto) , Lymphocytes (%) ( Auto) , Monocytes (%) (Auto) , Eosinophils (%) (Auto) , Basophils (%) (Auto) , Differential Total Cells Counted 100, Neutrophils % (Manual) 93H, Lymphocytes % (Manual) 4L, Monocytes % (Manual) 3, Eosinophils % (Manual) 0, Basophils % ( Manual) 0, Band Neutrophils 0, Platelet Estimate DecreasedL, Platelet Morphology Normal, Macrocytosis 1+, Prothrombin Time 11.0, Prothromb Time International Ratio 1.0, Activated Partial Thromboplast Time 29, Sodium Level 140, Potassium Level 3.6, Chloride Level 107, Carbon Dioxide Level 26, Anion Gap 7, Blood Urea Nitrogen 14, Creatinine 1.0, Estimat Glomerular Filtration Rate , Glucose Level 91, Calcium Level 7.7L, Magnesium Level 1.5L, Total Bilirubin 1.4H, Direct Bilirubin 0.5H, Aspartate Amino Transf (AST/SGOT) 237H, Alanine Aminotransferase (ALT/SGPT) 184H, Alkaline Phosphatase 93, Pro-B-Type Natriuretic Peptide 1073H, Total Protein 6.0L, Albumin 3.0L, Globulin 3.0, Albumin/Globulin Ratio 1.0, Vitamin B12 Level 799, Folate 19.8, Thyroid Stimulating Hormone (TSH) 0.086L Height (Feet): 5 Height (Inches): 6.00 Weight (Pounds): 147 Sachin Nesbitt MD May 20, 2019 16:42
[2019-05-20] MEDS ORDERED: VASCEPA1 GM PO (19:19)
[2019-05-20] MEDS ORDERED: CREON DR 24,001 EACH PO (19:20)
[2019-05-20] MEDS ORDERED: ATORVASTATIN CA40 MG ORAL (19:25)
[2019-05-20] MEDS ORDERED: ZANTAC150 MG ORAL (19:25)
[2019-05-20] MEDS ORDERED: PROSCAR5 MG ORAL (19:25)
[2019-05-20] MEDS ORDERED: FOLIC ACID1 MG ORAL (19:25)
[2019-05-20] MEDS ORDERED: MELOXICAM7.5 MG PO (19:25)
[2019-05-20] MEDS ORDERED: COLACE100 MG ORAL (19:25)
[2019-05-20] MEDS ORDERED: SILDENAFIL20 MG ORAL (19:25)
[2019-05-20] MEDS ORDERED: ASPIR-LOW81 MG ORAL (19:25)
[2019-05-20] MEDS ORDERED: LEVOTHYROXINE100 MC1 IV (19:25)
[2019-05-20] MEDS ORDERED: OYSTER SHELL C500 MG PO (19:25)
--- NOTE | 2019-05-20 19:30 | NUR ---
HAND-OFF: Report given to Eagle DAMIAN. Pt remains stable
--- NOTE | 2019-05-20 19:31 | NUR ---
NURSE NOTES: Got report from Min RN. Pt in stable condition. Denies any pain. No s/s of distress or discomfort noted. Pt resting in bed comfortably. Bed in low and locked position, call light within reach, bedside table within reach. Continue to monitor.
--- NOTE | 2019-05-20 22:30 | Consultation ---
DATE OF CONSULTATION: 05/20/2019 CHIEF COMPLAINT: I was asked to see this patient by Dr. Haider Zuleta for evaluation of abnormal liver tests. HISTORY OF PRESENT ILLNESS: The patient is a pleasant 78-year-old [place] male who was in his usual state of health until one day prior to admission when he noticed sudden onset of abdominal pain. The patient states that he has had some intermittent morning pain for the past few months according to , but otherwise severe pain that brought him to the hospital was new. He has had no previous history of liver disease or liver tests abnormalities. He does not drink alcohol. On admission, he was found to have severe degree of liver tests abnormalities and a CT scan was done showing ill-defined changes in the gallbladder, possibly from cholecystitis. The patient was seen and placed NPO. He is doing better. Subsequently, ultrasound was done, which did not show any common bile duct dilation. Today the liver tests appeared to be improved. There is no cholelithiasis seen on either ultrasound or CT scan. PAST MEDICAL HISTORY: No other significant medical problems. FAMILY HISTORY: Noncontributory. SOCIAL HISTORY: The patient is . He is [place]. He had a colonoscopy about a year ago. REVIEW OF SYSTEMS: Otherwise negative. PHYSICAL EXAMINATION: GENERAL: A pleasant man, seen in his room HEENT: Normocephalic and atraumatic. NECK: Supple. CHEST: Clear to auscultation. CARDIOVASCULAR: Regular rate. ABDOMEN: Soft and nontender. EXTREMITIES: No edema. LABORATORY DATA: Noted. ASSESSMENT: This patient presents with a new onset abdominal pain with abnormal liver tests, which are rapidly improving. Rapid change in liver tests along with relatively non-tenderness of the abdomen both on exam and also per sonographic Garcia sign suggest that he may have had a transient obstructive process, which was last seen with passed stone. Cholecystitis would be another consideration, but less likely given the lack of white count and lack of tenderness. Either diagnosis, however, would be treated with an eventual cholecystectomy. I will order an MRCP to rule out any common bile duct stones. If negative, then he can be managed conservatively and surgical intervention can be fine for a later date. RECOMMENDATIONS: 1. Continue following laboratory parameters. 2. MRCP tomorrow. 3. Resume oral diet after MRI . Thank you for asking me to participate in care this patient. Sachin Nesbitt M.D. DR: Luisa JOB#: [id number] CC:
[2019-05-21 04:00] VITALS: BP 101/80
[2019-05-21] MEDS: Piperacillin/Tazobactam 3.375 GM in NS 110 ML IVPB SCH ×3 (05:30→21:31)
[2019-05-21 07:15] LABS: HEMATOCRIT 37.7 % (42.0-52.0); HEMOGLOBIN 12.9 G/DL (14.2-18.0); MEAN CORPUSCULAR VOLUME 102 FL (80-99); PLATELET COUNT 127 K/UL (150-450); RED BLOOD COUNT 3.71 M/UL (4.70-6.10); RED CELL DISTRIBUTION WIDTH 11.7 % (11.6-14.8); WHITE BLOOD COUNT 5.6 K/UL (4.8-10.8)
--- NOTE | 2019-05-21 07:15 | NUR ---
HAND-OFF: Report given to Felecia RN. Endorsed plan of care.
[2019-05-21 07:38] LABS: ALANINE AMINOTRANSFERASE 123 U/L (12-78); ALBUMIN/GLOBULIN RATIO 1.1 (1.0-2.7); ALKALINE PHOSPHATASE 87 U/L (46-116); ANION GAP 7 mmol/L (5-15); ASPARTATE AMINO TRANSFERASE 91 U/L (15-37); BILIRUBIN,TOTAL 1.3 MG/DL (0.2-1.0); BLOOD UREA NITROGEN 13 mg/dL (7-18); CALCIUM 7.9 MG/DL (8.5-10.1); CARBON DIOXIDE 26 MMOL/L (21-32); CHLORIDE 106 MMOL/L (98-107); POTASSIUM 3.8 MMOL/L (3.5-5.1); SODIUM 139 MMOL/L (136-145)
[2019-05-21 07:39] LABS: BILIRUBIN,DIRECT 0.5 MG/DL (0.0-0.3)
--- NOTE | 2019-05-21 07:45 | NUR ---
NURSE NOTES: Received report from Geovany/RN, Patient awake and alert, AO x4, NPO for procedure. No acute distress/SOB noted. Able to make needs known. IV site patent, no bleeding or infiltration noted. Bed in lowest position and locked. Call light and personal belonging in reach. Will continue plan of care.
[2019-05-21 08:00] VITALS: BP 126/77
[2019-05-21] MEDS ORDERED: NS w/KCl 20mEq 1000ml 1,000 ML IV SCH ×2 (08:00→09:00)
[2019-05-21] MEDS: Heparin 5000 units/ml inj SUBQ SCH ×2 (09:00→21:33)
--- NOTE | 2019-05-21 09:04 | NUR ---
CASE MANAGEMENT:REVIEW 05/21/19 SI: CHOLECYSTITIS. SEPSIS. EMPYEMA LUNG 99.2 85 18 117/71 95% ON 2L/NC H/H-12.9/37.7 PLT-127 TBILI+1.3 DBILI+0.5 AST/ALT+91/123 IS: IVF+KCL @50/HR IV ZOSYN Q8HRS : TELEMETRY STATUS DCP: FROM HOME PLAN: MRCP PLANNED TO ASSESS FOR COMMON BILE DUCT STONES
--- NOTE | 2019-05-21 09:10 | Pulmonology Progress Note ---
Assessment/Plan Assessment/Plan prior TB chronic lung scarring significant fibrotic changes traction bronchiectasis hypoxemia anemia transaminitis PLAN continue same monitor for congestion likely colonized oxygen as needed gi follow up monitor and recommend further impression, plan, and exam edited and reviewed in detail care discussed with RN Subjective Allergies: Coded Allergies: No Known Allergies (Unverified , 05/19/19) Subjective care noted and reviewed on o2 CT noted Objective Last 24 Hour Vital Signs Date Time Temp Pulse Resp B/P (MAP) Pulse Ox O2 Delivery O2 Flow Rate FiO2 05/21/19 04:00 62 05/21/19 04:00 98.4 62 18 101/80 (87) 98 05/20/19 23:30 99.2 85 18 117/71 (86) 95 05/20/19 21:00 Nasal Cannula 2.0 05/20/19 20:00 78 05/20/19 20:00 99.0 77 18 117/69 (85) 98 05/20/19 16:00 79 05/20/19 16:00 98.0 79 21 126/72 (90) 97 05/20/19 12:00 79 05/20/19 12:00 98.0 77 22 122/73 (89) 94 Intake and Output 05/20/19 05/21/19 19:00 07:00 Intake Total 1960 ml Output Total 700 ml 1000 ml Balance 1260 ml -1000 ml Intake Oral 150 ml IV Total 1810 ml Output Urine Total 700 ml 1000 ml # Voids 3 # Bowel Movements 1 Objective WDWN on o2 coarse breath sounds with basilar crackles [id number] without MRG NABS mildly tender RUQ no CCE nonfocal awake Microbiology Date/Time Source Procedure Growth Status 05/19/19 14:51 Blood Blood Culture - Preliminary NO GROWTH AFTER 24 HOURS Resulted 05/19/19 14:31 Blood Blood Culture - Preliminary NO GROWTH AFTER 24 HOURS Resulted Laboratory Tests 05/21/19 05:40: White Blood Count 5.6, Red Blood Count 3.71L, Hemoglobin 12.9L, Hematocrit 37.7L , Mean Corpuscular Volume 102H, Mean Corpuscular Hemoglobin 34.9H, Mean Corpuscular Hemoglobin Concent 34.3, Red Cell Distribution Width 11.7, Platelet Count 127L, Mean Platelet Volume 6.4L, Neutrophils (%) (Auto) , Lymphocytes (%) (Auto) , Monocytes (%) (Auto) , Eosinophils (%) (Auto) , Basophils (%) (Auto) , Differential Total Cells Counted 100, Neutrophils % (Manual) 86H, Lymphocytes % (Manual) 7L, Monocytes % (Manual) 6, Eosinophils % (Manual) 1, Basophils % ( Manual) 0, Band Neutrophils 0, Platelet Estimate DecreasedL, Platelet Morphology Normal, Sodium Level 139, Potassium Level 3.8, Chloride Level 106, Carbon Dioxide Level 26, Anion Gap 7, Blood Urea Nitrogen 13, Creatinine 1.0, Estimat Glomerular Filtration Rate , Glucose Level 90, Calcium Level 7.9L, Total Bilirubin 1.3H, Direct Bilirubin 0.5H, Aspartate Amino Transf (AST/SGOT) 91H, Alanine Aminotransferase (ALT/SGPT) 123H, Alkaline Phosphatase 87, Total Protein 5.7L, Albumin 3.0L, Globulin 2.7, Albumin/Globulin Ratio 1.1 Current Medications Medications (Trade) Dose Ordered Sig/Genet Route PRN Reason Start Time Stop Time Status Last Admin Dose Admin Albuterol/ Ipratropium (Albuterol/ Ipratropium) 3 ml Q6H PRN HHN Shortness of Breath 05/20/19 12:15 05/25/19 12:14 Heparin Sodium (Porcine) (Heparin 5000 units/ml) 5,000 units EVERY 12 HOURS SUBQ 05/20/19 09:00 06/19/19 08:59 05/20/19 08:53 Ondansetron HCl (Zofran) 4 mg Q6H PRN IVP Nausea & Vomiting 05/19/19 22:00 06/18/19 21:59 Piperacillin Sod/ Tazobactam Sod 3.375 gm/Sodium Chloride 110 ml @ 27.5 mls/hr EVERY 8 HOURS IVPB 05/19/19 22:00 05/24/19 21:59 05/21/19 05:30 Potassium Chloride/Sodium Chloride 1,000 ml @ 50 mls/hr Q20H IV 05/21/19 09:00 06/20/19 08:59 Angel Barrera MD May 21, 2019 09:10
[2019-05-21 12:00] VITALS: BP 119/77
--- NOTE | 2019-05-21 12:02 | Surgery Progress Note ---
Surgery Progress Note Subjective Symptoms: improved, pain absent, voiding well, passing flatus Additional Comments no acute events. doing well. comfortable. no n/v/f/c. MRCP done today Objective Last 24 Hour Vital Signs Date Time Temp Pulse Resp B/P (MAP) Pulse Ox O2 Delivery O2 Flow Rate FiO2 05/21/19 09:00 Nasal Cannula 2.0 05/21/19 08:00 70 05/21/19 08:00 98.6 72 18 126/77 (93) 95 05/21/19 04:00 62 05/21/19 04:00 98.4 62 18 101/80 (87) 98 05/20/19 23:30 99.2 85 18 117/71 (86) 95 05/20/19 21:00 Nasal Cannula 2.0 05/20/19 20:00 78 05/20/19 20:00 99.0 77 18 117/69 (85) 98 05/20/19 16:00 79 05/20/19 16:00 98.0 79 21 126/72 (90) 97 05/20/19 12:00 79 05/20/19 12:00 98.0 77 22 122/73 (89) 94 I&O Intake and Output 05/20/19 05/21/19 19:00 07:00 Intake Total 1960 ml Output Total 700 ml 1000 ml Balance 1260 ml -1000 ml Intake Oral 150 ml IV Total 1810 ml Output Urine Total 700 ml 1000 ml # Voids 3 # Bowel Movements 1 Cardiovascular: RSR Respiratory: clear Abdomen: soft, flat, non-tender, present bowel sounds Extremities: no tenderness, no cyanosis Laboratory Tests Test 05/21/19 05:40 White Blood Count 5.6 K/UL (4.8-10.8) Red Blood Count 3.71 M/UL (4.70-6.10) L Hemoglobin 12.9 G/DL (14.2-18.0) L Hematocrit 37.7 % (42.0-52.0) L Mean Corpuscular Volume 102 FL (80-99) H Mean Corpuscular Hemoglobin 34.9 PG (27.0-31.0) H Mean Corpuscular Hemoglobin Concent 34.3 G/DL (32.0-36.0) Red Cell Distribution Width 11.7 % (11.6-14.8) Platelet Count 127 K/UL (150-450) L Mean Platelet Volume 6.4 FL (6.5-10.1) L Neutrophils (%) (Auto) % (45.0-75.0) Lymphocytes (%) (Auto) % (20.0-45.0) Monocytes (%) (Auto) % (1.0-10.0) Eosinophils (%) (Auto) % (0.0-3.0) Basophils (%) (Auto) % (0.0-2.0) Differential Total Cells Counted 100 Neutrophils % (Manual) 86 % (45-75) H Lymphocytes % (Manual) 7 % (20-45) L Monocytes % (Manual) 6 % (1-10) Eosinophils % (Manual) 1 % (0-3) Basophils % (Manual) 0 % (0-2) Band Neutrophils 0 % (0-8) Platelet Estimate Decreased L Platelet Morphology Normal Sodium Level 139 MMOL/L (136-145) Potassium Level 3.8 MMOL/L (3.5-5.1) Chloride Level 106 MMOL/L (98-107) Carbon Dioxide Level 26 MMOL/L (21-32) Anion Gap 7 mmol/L (5-15) Blood Urea Nitrogen 13 mg/dL (7-18) Creatinine 1.0 MG/DL (0.55-1.30) Estimat Glomerular Filtration Rate mL/min (>60) Glucose Level 90 MG/DL (74-106) Calcium Level 7.9 MG/DL (8.5-10.1) L Total Bilirubin 1.3 MG/DL (0.2-1.0) H Direct Bilirubin 0.5 MG/DL (0.0-0.3) H Aspartate Amino Transf (AST/SGOT) 91 U/L (15-37) H Alanine Aminotransferase (ALT/SGPT) 123 U/L (12-78) H Alkaline Phosphatase 87 U/L (46-116) Total Protein 5.7 G/DL (6.4-8.2) L Albumin 3.0 G/DL (3.4-5.0) L Globulin 2.7 g/dL Albumin/Globulin Ratio 1.1 (1.0-2.7) Plan Problems: (1) Cholecystitis Assessment & Plan: This is a 78-year-old male with abdominal pain, nausea, elevated LFTs. CT scan with concerns for cholecystitis given gallbladder wall thickening. Since admission patient given medication and has been feeling better. Denies any current abdominal pain nausea or emesis. LFT's improved t bili trending down lipase normal US noted as below The liver is unremarkable. Doppler interrogation of the main portal vein shows patency with hepatopedal, monophasic flow. There is no biliary ductal dilatation identified. Gallbladder wall thickening noted. Sonographic Garcia's sign was negative per technologist. CBD is 3.7 mm There demonstrated part of the pancreas, aorta and IVC show no definite abnormalities. MRCP without cbd stone no acute surgical intervention planned diet as tolerated thank you will follow with recs (2) Empyema lung (3) Sepsis Maynor Wall May 21, 2019 12:02
--- NOTE | 2019-05-21 12:08 | Diagnostic Imaging Report ---
Indication: Abnormal liver function tests. Technique: MRI of the abdomen was performed in a 1.5 Kortney magnet. Pulse sequences obtained include coronal and axial T2 single shot fast spin echo breathhold and respiratory gated coronal T2 3-D M.R.C.P.; this data set was displayed in different projections or MIPs. In addition, multiple coronal oblique thin T2 weighted, fat saturated SE sequences obtained through the CBD. Comparison: None Findings: The biliary ducts are not dilated. CBD is normal. There is mild gallbladder wall thickening involving a nondistended gallbladder. The there are 2 tiny stones within the gallbladder lumen close to the neck of the gallbladder. Heterogeneous signal noted at the right lung base. This appears pleural-based and is likely a complex the pleural effusion probably loculated. There is no ascites identified. There are small bilateral renal cysts noted. IMPRESSION: Cholelithiasis with wall thickening. Please correlate clinically for cholecystitis. No evidence of choledocholithiasis or biliary ductal obstruction. Heterogeneous pleural-based focus at the right lung base consistent with a complex pleural effusion probably loculated. Tiny bilateral renal cysts
--- NOTE | 2019-05-21 12:25 | NUR ---
RD ASSESSMENT & RECOMMENDATIONS SEE CARE ACTIVITY FOR COMPLETE ASSESSMENT DAILY ESTIMATED NEEDS: Needs based on Liver 65kg 25-30 kcals/kg 5407-8998 total kcals 1-1.5 g protein/kg 65-98 g total protein 25-30 mL/kg 8342-1241 total fluid mLs NUTRITION DIAGNOSIS: Altered nutrition related lab values r/t cholecystitis as evidenced by pt adm w/ abdominal pain, elev T bili (now 1.3), elev LFT's (now trending down). CURRENT DIET: Now CLD PO DIET RECOMMENDATIONS: Advance to Low Fat/ Low Na as tolerated ADDITIONAL RECOMMENDATIONS: 1) Monitor tolerance to oral diet 2) Check lytes daily, replete as needed (Mg 1.5)
--- NOTE | 2019-05-21 13:49 | NUR ---
*-* INSURANCE *-* ALL CLINICALS AND REVIEWS HAVE BEEN FAXED TO: [facility] P: [phone] F: [phone] (FAX CLINICALS)
[2019-05-21 16:00] VITALS: BP 128/77
--- NOTE | 2019-05-21 19:31 | NUR ---
HAND-OFF: Report given to Jonah/RN, Patient is awake and alert, in stable condition. Endorsed plan of care.
--- NOTE | 2019-05-21 19:35 | NUR ---
NURSE NOTES: Received report from NATI Izquierdo. Pt is awake and resting in bed. In no acute distress. Bed in lowest position, call light within reach. Will continue plan of care.
--- NOTE | 2019-05-21 19:36 | General Progress Note ---
Assessment/Plan Assessment/Plan: Assessment - Cholelithiasis - declining LFT, likely passed stone - loculated pleural effusion / prior lung infection Recommendations - advance po diet - follow labs - eventual lap alecia Subjective Allergies: Coded Allergies: No Known Allergies (Unverified , 05/19/19) Subjective Feels better no abd pain MRI noted - (+) cholelithiasis and loculated pleural effusion Objective Last 24 Hour Vital Signs Date Time Temp Pulse Resp B/P (MAP) Pulse Ox O2 Delivery O2 Flow Rate FiO2 05/21/19 16:00 71 05/21/19 16:00 98.1 59 18 128/77 (94) 98 05/21/19 12:00 98.1 66 18 119/77 (91) 97 05/21/19 12:00 64 05/21/19 09:00 Nasal Cannula 2.0 05/21/19 08:00 70 05/21/19 08:00 98.6 72 18 126/77 (93) 95 05/21/19 04:00 62 05/21/19 04:00 98.4 62 18 101/80 (87) 98 05/20/19 23:30 99.2 85 18 117/71 (86) 95 05/20/19 21:00 Nasal Cannula 2.0 05/20/19 20:00 78 05/20/19 20:00 99.0 77 18 117/69 (85) 98 Intake and Output 05/20/19 05/21/19 19:00 07:00 Intake Total 1960 ml Output Total 700 ml 1000 ml Balance 1260 ml -1000 ml Intake Oral 150 ml IV Total 1810 ml Output Urine Total 700 ml 1000 ml # Voids 3 # Bowel Movements 1 Laboratory Tests 05/21/19 05:40: White Blood Count 5.6, Red Blood Count 3.71L, Hemoglobin 12.9L, Hematocrit 37.7L , Mean Corpuscular Volume 102H, Mean Corpuscular Hemoglobin 34.9H, Mean Corpuscular Hemoglobin Concent 34.3, Red Cell Distribution Width 11.7, Platelet Count 127L, Mean Platelet Volume 6.4L, Neutrophils (%) (Auto) , Lymphocytes (%) (Auto) , Monocytes (%) (Auto) , Eosinophils (%) (Auto) , Basophils (%) (Auto) , Differential Total Cells Counted 100, Neutrophils % (Manual) 86H, Lymphocytes % (Manual) 7L, Monocytes % (Manual) 6, Eosinophils % (Manual) 1, Basophils % ( Manual) 0, Band Neutrophils 0, Platelet Estimate DecreasedL, Platelet Morphology Normal, Sodium Level 139, Potassium Level 3.8, Chloride Level 106, Carbon Dioxide Level 26, Anion Gap 7, Blood Urea Nitrogen 13, Creatinine 1.0, Estimat Glomerular Filtration Rate , Glucose Level 90, Calcium Level 7.9L, Total Bilirubin 1.3H, Direct Bilirubin 0.5H, Aspartate Amino Transf (AST/SGOT) 91H, Alanine Aminotransferase (ALT/SGPT) 123H, Alkaline Phosphatase 87, Total Protein 5.7L, Albumin 3.0L, Globulin 2.7, Albumin/Globulin Ratio 1.1 Height (Feet): 5 Height (Inches): 6.00 Weight (Pounds): 147 Objective WDWN man NCAT supple CTA RRR abd soft ND NT no edema non focal Sachin Nesbitt MD May 21, 2019 19:36
[2019-05-21 20:00] VITALS: BP 128/71
[2019-05-22] VITALS: BP 115/66
--- NOTE | 2019-05-22 01:30 | Progress Note ---
DATE: 05/21/2019 CARDIOLOGY PROGRESS NOTE SUBJECTIVE: The patient has no nausea, vomiting, or abdominal pain. He is afebrile. T-max is 99.2. The patient had an MRCP, which was negative for obstruction, but noted cholelithiasis and loculated pleural effusion. OBJECTIVE: VITAL SIGNS: Blood pressure 128/77, pulse 59, and respirations 18. LUNGS: Diminished breath sounds and few rhonchi. CARDIAC: Regular rhythm and rate. Normal S1, S2 with a fourth heart sound. ABDOMEN: Soft with no focal tenderness. EXTREMITIES: Reveal no edema. LABORATORY DATA: Blood cultures are negative. White count 5.6, hemoglobin 12.9. Sodium 139, potassium 3.8, bicarbonate 26, BUN 13, and creatinine 1.0. Albumin 3.0. IMPRESSION: 1. No signs of acute cholecystitis. Cholelithiasis without choledocholithiasis at this time. 2. History of tuberculosis, status post treatment. 3. Chronic lung disease with loculated pleural effusion. 4. Recovering sepsis. PLAN: 1. Respiratory hygiene. 2. Antimicrobials. 3. No surgical plan. 4. Advanced diet. 5. Lap cholecystectomy in the future. 6. Titrate antihypertensive and anti-failure regimen. 7. Discontinue IV fluids once diet advanced and tolerated. Haider Zuleta M.D. DR: BE JOB#: [id number] CC:
[2019-05-22 04:00] VITALS: BP 125/73
[2019-05-22] MEDS: Piperacillin/Tazobactam 3.375 GM in NS 110 ML IVPB SCH ×3 (06:13→21:53)
[2019-05-22 06:46] LABS: HEMATOCRIT 38.9 % (42.0-52.0); HEMOGLOBIN 13.3 G/DL (14.2-18.0); MEAN CORPUSCULAR VOLUME 101 FL (80-99); PLATELET COUNT 144 K/UL (150-450); RED BLOOD COUNT 3.87 M/UL (4.70-6.10); RED CELL DISTRIBUTION WIDTH 11.3 % (11.6-14.8)
[2019-05-22 07:13] LABS: ALANINE AMINOTRANSFERASE 89 U/L (12-78); ALBUMIN 2.9 G/DL (3.4-5.0); ALBUMIN/GLOBULIN RATIO 0.9 (1.0-2.7); ALKALINE PHOSPHATASE 95 U/L (46-116); ANION GAP 8 mmol/L (5-15); ASPARTATE AMINO TRANSFERASE 49 U/L (15-37); BILIRUBIN,TOTAL 0.7 MG/DL (0.2-1.0); BLOOD UREA NITROGEN 12 mg/dL (7-18); CALCIUM 8.1 MG/DL (8.5-10.1); CARBON DIOXIDE 26 MMOL/L (21-32); CHLORIDE 107 MMOL/L (98-107); CREATININE 1.1 MG/DL (0.55-1.30); SODIUM 140 MMOL/L (136-145)
--- NOTE | 2019-05-22 07:14 | NUR ---
HAND-OFF: Report given to NATI Izquierdo.
--- NOTE | 2019-05-22 07:14 | NUR ---
NURSE NOTES: Received report from Jonah/RN, Patient awake and alert, AO x4, No acute distress/SOB noted. Sitting up on bed, eating breakfast. Able to make needs known. IV site patent, no bleeding or infiltration noted. Bed in lowest position and locked. Call light and personal belonging within reach. Will continue plan of care.
--- NOTE | 2019-05-22 07:31 | NUR ---
CASE MANAGEMENT:REVIEW 05/22/19 SI: CHOLECYSTITIS. SEPSIS. EMPYEMA LUNG S/P MRCP (-) FOR COMMON BILE DUCT STONES 98.3 68 18 125/73 97% ON 2L/NC H/H-13.3/38.9 PLT-144 CA-8.1 AST/ALT+49/89 IS: IV ZOSYN Q8HRS ZENPEP PO QD PEPCID PO BID PROSCAR PO QD HEPARIN SQ Q12 : TELEMETRY STATUS DCP: FROM HOME PLAN: NO SURGICAL INTERVENTION PLANNED LOW FAT DIET
[2019-05-22 08:00] VITALS: BP 137/70
[2019-05-22] MEDS: Pancrelipase Dr Cap ORAL SCH (08:27)
[2019-05-22] MEDS: Heparin 5000 units/ml inj SUBQ SCH ×2 (08:32→21:58)
--- NOTE | 2019-05-22 11:04 | Cardiology Report ---
APPROVED REPORT EXAM: Two-dimensional and M-mode echocardiogram with Doppler and color Doppler. INDICATION Congestive Heart Failure M-Mode DIMENSIONS IVSd1.3 (0.7-1.1cm)Left Atrium (MM)3.3 (1.6-4.0cm) LVDd3.6 (3.5-5.6cm)Aortic Root3.1 (2.0-3.7cm) PWd1.0 (0.7-1.1cm)Aortic Cusp Exc.1.9 (1.5-2.0cm) LVDs2.7 (2.5-4.0cm) PWs1.2 cm Normal left ventricular chamber size, systolic function and wall motion. Left ventricular ejection fraction estimated to be 60 %. Mild left ventricular hypertrophy. No evidence of pericardial effusion. All other cardiac chamber sizes are within normal limits. Focal aortic valve sclerosis with adequate cusp excursion. Thickened mitral valve leaflets with normal excursion. Mitral annulus and aortic root calcification. Pulmonic valve not well visualized. Normal tricuspid valve structure. IVC measured at 2.1 cm with slight physiologic collapse. A color flow and spectral Doppler study was performed and revealed: No aortic regurgitation. Mild mitral regurgitation. Mitral diastolic velocities suggest reduced left ventricular relaxation c/w mild LV diastolic dysfunction (Grade I ). Mild tricuspid regurgitation. Tricuspid systolic velocities suggests peak right ventricular systolic pressure of 39 mmHg consistent with mild pulmonary hypertension. Trace pulmonic regurgitation present.
[2019-05-22 12:00] VITALS: BP 119/84
--- NOTE | 2019-05-22 12:07 | Surgery Progress Note ---
Surgery Progress Note Subjective Symptoms: improved, pain absent, tolerating diet, passing flatus, BM Objective Last 24 Hour Vital Signs Date Time Temp Pulse Resp B/P (MAP) Pulse Ox O2 Delivery O2 Flow Rate FiO2 05/22/19 09:00 Nasal Cannula 2.0 05/22/19 08:00 65 05/22/19 08:00 99.6 64 20 137/70 (92) 96 05/22/19 07:45 63 17 97 Nasal Cannula 2.0 28 05/22/19 07:45 97 Nasal Cannula 2.0 28 05/22/19 04:00 98.3 68 18 125/73 (90) 97 05/22/19 04:00 68 05/22/19 00:28 66 20 97 Nasal Cannula 2.0 28 05/22/19 00:00 97.4 70 18 115/66 (82) 96 05/22/19 00:00 70 05/21/19 21:00 Nasal Cannula 2.0 05/21/19 20:00 97.9 69 18 128/71 (90) 96 05/21/19 20:00 69 05/21/19 16:00 71 05/21/19 16:00 98.1 59 18 128/77 (94) 98 I&O Intake and Output 05/21/19 05/22/19 19:00 07:00 Intake Total 720 ml 230 ml Balance 720 ml 230 ml Intake Oral 720 ml 120 ml IV Total 110 ml # Voids 2 2 # Bowel Movements 1 Cardiovascular: RSR Respiratory: clear Abdomen: soft, non-tender, present bowel sounds, non-distended Extremities: no edema, no tenderness, no cyanosis Laboratory Tests Test 05/22/19 05:42 White Blood Count 4.0 K/UL (4.8-10.8) L Red Blood Count 3.87 M/UL (4.70-6.10) L Hemoglobin 13.3 G/DL (14.2-18.0) L Hematocrit 38.9 % (42.0-52.0) L Mean Corpuscular Volume 101 FL (80-99) H Mean Corpuscular Hemoglobin 34.2 PG (27.0-31.0) H Mean Corpuscular Hemoglobin Concent 34.0 G/DL (32.0-36.0) Red Cell Distribution Width 11.3 % (11.6-14.8) L Platelet Count 144 K/UL (150-450) L Mean Platelet Volume 5.9 FL (6.5-10.1) L Neutrophils (%) (Auto) % (45.0-75.0) Lymphocytes (%) (Auto) % (20.0-45.0) Monocytes (%) (Auto) % (1.0-10.0) Eosinophils (%) (Auto) % (0.0-3.0) Basophils (%) (Auto) % (0.0-2.0) Differential Total Cells Counted 100 Neutrophils % (Manual) 75 % (45-75) Lymphocytes % (Manual) 13 % (20-45) L Monocytes % (Manual) 9 % (1-10) Eosinophils % (Manual) 3 % (0-3) Basophils % (Manual) 0 % (0-2) Band Neutrophils 0 % (0-8) Platelet Estimate Decreased L Platelet Morphology Normal Macrocytosis 1+ Sodium Level 140 MMOL/L (136-145) Potassium Level 4.0 MMOL/L (3.5-5.1) Chloride Level 107 MMOL/L (98-107) Carbon Dioxide Level 26 MMOL/L (21-32) Anion Gap 8 mmol/L (5-15) Blood Urea Nitrogen 12 mg/dL (7-18) Creatinine 1.1 MG/DL (0.55-1.30) Estimat Glomerular Filtration Rate mL/min (>60) Glucose Level 101 MG/DL (74-106) Calcium Level 8.1 MG/DL (8.5-10.1) L Magnesium Level 2.0 MG/DL (1.8-2.4) Total Bilirubin 0.7 MG/DL (0.2-1.0) Aspartate Amino Transf (AST/SGOT) 49 U/L (15-37) H Alanine Aminotransferase (ALT/SGPT) 89 U/L (12-78) H Alkaline Phosphatase 95 U/L (46-116) Pro-B-Type Natriuretic Peptide 516 pg/mL (0-125) H Total Protein 6.0 G/DL (6.4-8.2) L Albumin 2.9 G/DL (3.4-5.0) L Globulin 3.1 g/dL Albumin/Globulin Ratio 0.9 (1.0-2.7) L Plan Problems: (1) Cholecystitis Assessment & Plan: This is a 78-year-old male with abdominal pain, nausea, elevated LFTs. CT scan with concerns for cholecystitis given gallbladder wall thickening. Since admission patient given medication and has been feeling better. Denies any current abdominal pain nausea or emesis. LFT's improved t bili trending down lipase normal US noted as below The liver is unremarkable. Doppler interrogation of the main portal vein shows patency with hepatopedal, monophasic flow. There is no biliary ductal dilatation identified. Gallbladder wall thickening noted. Sonographic Garcia's sign was negative per technologist. CBD is 3.7 mm There demonstrated part of the pancreas, aorta and IVC show no definite abnormalities. MRCP without cbd stone LFT's resolved no acute surgical intervention planned diet as tolerated discharge planning from surgical standpoint thank you will follow with recs (2) Empyema lung (3) Sepsis Maynor Wall May 22, 2019 12:07
--- NOTE | 2019-05-22 15:15 | NUR ---
*-* INSURANCE *-* ALL CLINICALS AND REVIEWS HAVE BEEN FAXED TO: [facility]DE[facility] P: [phone] F: [phone] (FAX CLINICALS)
[2019-05-22 16:00] VITALS: BP 130/79
--- NOTE | 2019-05-22 16:59 | Pulmonology Progress Note ---
Assessment/Plan Assessment/Plan prior TB chronic lung scarring significant fibrotic changes traction bronchiectasis hypoxemia anemia transaminitis PLAN continue same and monitor monitor for congestion likely colonized for now oxygen as needed gi follow up monitor and recommend further for changes and discuss impression, plan, and exam edited and reviewed in detail care discussed with RN Subjective Allergies: Coded Allergies: No Known Allergies (Unverified , 05/19/19) Subjective care noted and reviewed on o2 care reviewed Objective Last 24 Hour Vital Signs Date Time Temp Pulse Resp B/P (MAP) Pulse Ox O2 Delivery O2 Flow Rate FiO2 05/22/19 12:00 58 05/22/19 12:00 98.6 68 20 119/84 (96) 100 05/22/19 09:00 Nasal Cannula 2.0 05/22/19 08:00 65 05/22/19 08:00 99.6 64 20 137/70 (92) 96 05/22/19 07:45 63 17 97 Nasal Cannula 2.0 28 05/22/19 07:45 97 Nasal Cannula 2.0 28 05/22/19 04:00 98.3 68 18 125/73 (90) 97 05/22/19 04:00 68 05/22/19 00:28 66 20 97 Nasal Cannula 2.0 28 05/22/19 00:00 97.4 70 18 115/66 (82) 96 05/22/19 00:00 70 05/21/19 21:00 Nasal Cannula 2.0 05/21/19 20:00 97.9 69 18 128/71 (90) 96 05/21/19 20:00 69 Intake and Output 05/21/19 05/22/19 19:00 07:00 Intake Total 720 ml 230 ml Balance 720 ml 230 ml Intake Oral 720 ml 120 ml IV Total 110 ml # Voids 2 2 # Bowel Movements 1 Objective WDWN on o2 coarse breath sounds with basilar crackles [id number] without MRG NABS mildly tender RUQ no CCE nonfocal awake Laboratory Tests 05/22/19 05:42: White Blood Count 4.0L, Red Blood Count 3.87L, Hemoglobin 13.3L, Hematocrit 38.9L, Mean Corpuscular Volume 101H, Mean Corpuscular Hemoglobin 34.2H, Mean Corpuscular Hemoglobin Concent 34.0, Red Cell Distribution Width 11.3L, Platelet Count 144L, Mean Platelet Volume 5.9L, Neutrophils (%) (Auto) , Lymphocytes (%) (Auto) , Monocytes (%) (Auto) , Eosinophils (%) (Auto) , Basophils (%) (Auto) , Differential Total Cells Counted 100, Neutrophils % ( Manual) 75, Lymphocytes % (Manual) 13L, Monocytes % (Manual) 9, Eosinophils % ( Manual) 3, Basophils % (Manual) 0, Band Neutrophils 0, Platelet Estimate DecreasedL, Platelet Morphology Normal, Macrocytosis 1+, Sodium Level 140, Potassium Level 4.0, Chloride Level 107, Carbon Dioxide Level 26, Anion Gap 8, Blood Urea Nitrogen 12, Creatinine 1.1, Estimat Glomerular Filtration Rate , Glucose Level 101, Calcium Level 8.1L, Magnesium Level 2.0, Total Bilirubin 0.7 , Aspartate Amino Transf (AST/SGOT) 49H, Alanine Aminotransferase (ALT/SGPT) 89H , Alkaline Phosphatase 95, Pro-B-Type Natriuretic Peptide 516H, Total Protein 6.0L, Albumin 2.9L, Globulin 3.1, Albumin/Globulin Ratio 0.9L Current Medications Medications (Trade) Dose Ordered Sig/Genet Route PRN Reason Start Time Stop Time Status Last Admin Dose Admin Albuterol/ Ipratropium (Albuterol/ Ipratropium) 3 ml Q6H PRN HHN Shortness of Breath 05/20/19 12:15 05/25/19 12:14 Amylase/Lipase/ Protease (Zenpep) 1 ea DAILY ORAL 05/22/19 09:00 06/21/19 08:59 05/22/19 08:27 Famotidine (Pepcid) 20 mg BID ORAL 05/22/19 09:00 06/21/19 08:59 05/22/19 08:27 Finasteride (Proscar) 5 mg DAILY ORAL 05/22/19 09:00 06/21/19 08:59 05/22/19 08:27 Heparin Sodium (Porcine) (Heparin 5000 units/ml) 5,000 units EVERY 12 HOURS SUBQ 05/20/19 09:00 06/19/19 08:59 05/22/19 08:32 Ondansetron HCl (Zofran) 4 mg Q6H PRN IVP Nausea & Vomiting 05/19/19 22:00 06/18/19 21:59 Piperacillin Sod/ Tazobactam Sod 3.375 gm/Sodium Chloride 110 ml @ 27.5 mls/hr EVERY 8 HOURS IVPB 05/19/19 22:00 05/24/19 21:59 05/22/19 13:57 Angel Barrera MD May 22, 2019 16:59
--- NOTE | 2019-05-22 19:17 | NUR ---
HAND-OFF: Report given to Jonah/RN, Patient is awake and alert, Watching TV, in stable condition. Endorsed plan of care.
[2019-05-22 20:00] VITALS: BP 128/70
--- NOTE | 2019-05-22 20:14 | General Progress Note ---
Assessment/Plan Assessment/Plan: Assessment - Cholelithiasis - declining LFT, likely passed stone - loculated pleural effusion / prior lung infection Recommendations - po diet as tolerated - follow labs - eventual lap alecia Subjective Allergies: Coded Allergies: No Known Allergies (Unverified , 05/19/19) Subjective Feels better no abd pain tolerating PO Objective Last 24 Hour Vital Signs Date Time Temp Pulse Resp B/P (MAP) Pulse Ox O2 Delivery O2 Flow Rate FiO2 05/22/19 19:53 97 Nasal Cannula 2.0 28 05/22/19 19:53 70 18 98 Nasal Cannula 2.0 28 05/22/19 16:00 98.6 57 20 130/79 (96) 98 05/22/19 16:00 60 05/22/19 12:00 58 05/22/19 12:00 98.6 68 20 119/84 (96) 100 05/22/19 09:00 Nasal Cannula 2.0 05/22/19 08:00 65 05/22/19 08:00 99.6 64 20 137/70 (92) 96 05/22/19 07:45 63 17 97 Nasal Cannula 2.0 28 05/22/19 07:45 97 Nasal Cannula 2.0 28 05/22/19 04:00 98.3 68 18 125/73 (90) 97 05/22/19 04:00 68 05/22/19 00:28 66 20 97 Nasal Cannula 2.0 28 05/22/19 00:00 97.4 70 18 115/66 (82) 96 05/22/19 00:00 70 05/21/19 21:00 Nasal Cannula 2.0 Intake and Output 05/21/19 05/22/19 19:00 07:00 Intake Total 720 ml 230 ml Balance 720 ml 230 ml Intake Oral 720 ml 120 ml IV Total 110 ml # Voids 2 2 # Bowel Movements 1 Laboratory Tests 05/22/19 05:42: White Blood Count 4.0L, Red Blood Count 3.87L, Hemoglobin 13.3L, Hematocrit 38.9L, Mean Corpuscular Volume 101H, Mean Corpuscular Hemoglobin 34.2H, Mean Corpuscular Hemoglobin Concent 34.0, Red Cell Distribution Width 11.3L, Platelet Count 144L, Mean Platelet Volume 5.9L, Neutrophils (%) (Auto) , Lymphocytes (%) (Auto) , Monocytes (%) (Auto) , Eosinophils (%) (Auto) , Basophils (%) (Auto) , Differential Total Cells Counted 100, Neutrophils % ( Manual) 75, Lymphocytes % (Manual) 13L, Monocytes % (Manual) 9, Eosinophils % ( Manual) 3, Basophils % (Manual) 0, Band Neutrophils 0, Platelet Estimate DecreasedL, Platelet Morphology Normal, Macrocytosis 1+, Sodium Level 140, Potassium Level 4.0, Chloride Level 107, Carbon Dioxide Level 26, Anion Gap 8, Blood Urea Nitrogen 12, Creatinine 1.1, Estimat Glomerular Filtration Rate , Glucose Level 101, Calcium Level 8.1L, Magnesium Level 2.0, Total Bilirubin 0.7 , Aspartate Amino Transf (AST/SGOT) 49H, Alanine Aminotransferase (ALT/SGPT) 89H , Alkaline Phosphatase 95, Pro-B-Type Natriuretic Peptide 516H, Total Protein 6.0L, Albumin 2.9L, Globulin 3.1, Albumin/Globulin Ratio 0.9L Height (Feet): 5 Height (Inches): 6.00 Weight (Pounds): 147 Objective WDWN man NCAT supple CTA RRR abd soft ND NT no edema non focal Sachin Nesbitt MD May 22, 2019 20:14
--- NOTE | 2019-05-22 23:00 | Progress Note ---
DATE: 05/22/2019 INTERNAL MEDICINE CARDIOLOGY PROGRESS NOTE SUBJECTIVE: The patient feels better. No shortness of breath. No abdominal pain, nausea, or vomiting. Tolerating diet. OBJECTIVE: VITAL SIGNS: Blood pressure 130/79, heart rate 57 to 70, respiratory rate 20, and afebrile. Monitored rhythm sinus and sinus bradycardia. LUNGS: Few rhonchi. CARDIAC: Regular rhythm and rate. Normal S1 and S2. ABDOMEN: Soft. No focal tenderness, guarding, or rebound. EXTREMITIES: No edema. LABORATORY DATA: White count 4 and hemoglobin 13.3. Liver function studies have almost normalized. Pro-natriuretic peptide is 516. Albumin 2.9. BUN 12 and creatinine 1.1. IMPRESSION: 1. Transaminitis, recovering, likely was due to passed stone. 2. Cholelithiasis. 3. Pleural effusion. 4. Chronic lung disease. 5. History of tuberculosis. 6. Acute on chronic diastolic congestive heart failure. 7. Sinus node disease. 8. Hypertensive heart disease. 9. Mild pulmonary hypertension. PLAN: 1. Continue diet. 2. Monitor hepatobiliary function. 3. Discontinue IV fluids. 4. Empiric antimicrobials. 5. Add inhibitor. Haider Zuleta M.D. DR: ARSEN JOB#: [id number] CC:
[2019-05-23] VITALS: BP_SYST 123; BP_SYST 13; BP_DIAS 71
[2019-05-23 04:00] VITALS: BP 116/73
[2019-05-23] MEDS: Piperacillin/Tazobactam 3.375 GM in NS 110 ML IVPB SCH ×2 (06:12→13:21)
[2019-05-23] MEDS ORDERED: LEVOTHYROXINE75 MCG ORAL (07:24)
--- NOTE | 2019-05-23 07:24 | NUR ---
NURSE NOTES: Received report from Jonah DAMIAN. AOX4 and able to make needs known. Pt sitting in bed and eating breakfast. No c/o pain. IV site in RFA 20G SL patent and asymptomatic. No signs of distress noted. Bed in lowest position and locked. 2X side rails up. Will continue to plan of care.
--- NOTE | 2019-05-23 07:24 | NUR ---
HAND-OFF: Report given to NATI Og.
[2019-05-23 08:00] VITALS: BP 125/75
--- NOTE | 2019-05-23 08:43 | Pulmonology Progress Note ---
Assessment/Plan Assessment/Plan prior TB chronic lung scarring significant fibrotic changes traction bronchiectasis hypoxemia anemia transaminitis PLAN maintain same regimen for now monitor for congestion oxygen as needed respiratory care reviewed monitor imaging monitor and recommend further for changes and discuss impression, plan, and exam edited and reviewed in detail care discussed with RN Subjective Allergies: Coded Allergies: No Known Allergies (Unverified , 05/19/19) Subjective on o2 and stable minimal congestion care reviewed overnight Objective Last 24 Hour Vital Signs Date Time Temp Pulse Resp B/P (MAP) Pulse Ox O2 Delivery O2 Flow Rate FiO2 05/23/19 08:00 98.1 64 18 125/75 (92) 95 05/23/19 06:34 62 16 96 Nasal Cannula 2.0 28 05/23/19 06:34 96 Nasal Cannula 2.0 28 05/23/19 04:00 65 05/23/19 04:00 97.9 65 18 116/73 (87) 98 05/23/19 00:00 73 05/23/19 00:00 98.1 73 18 123/71 (88) 97 05/22/19 21:00 Nasal Cannula 2.0 05/22/19 20:00 60 05/22/19 20:00 97.9 60 18 128/70 (89) 98 05/22/19 19:53 97 Nasal Cannula 2.0 28 05/22/19 19:53 70 18 98 Nasal Cannula 2.0 28 05/22/19 16:00 98.6 57 20 130/79 (96) 98 05/22/19 16:00 60 05/22/19 12:00 58 05/22/19 12:00 98.6 68 20 119/84 (96) 100 05/22/19 09:00 Nasal Cannula 2.0 Intake and Output 05/22/19 05/23/19 18:59 06:59 Intake Total 400 ml 120 ml Balance 400 ml 120 ml Intake Oral 400 ml 120 ml # Voids 3 3 # Bowel Movements 1 Objective WDWN on o2 coarse breath sounds with basilar crackles [id number] without MRG NABS mildly tender RUQ no CCE nonfocal awake Current Medications Medications (Trade) Dose Ordered Sig/Genet Route PRN Reason Start Time Stop Time Status Last Admin Dose Admin Albuterol/ Ipratropium (Albuterol/ Ipratropium) 3 ml Q6H PRN HHN Shortness of Breath 05/20/19 12:15 05/25/19 12:14 Amylase/Lipase/ Protease (Zenpep) 1 ea DAILY ORAL 05/22/19 09:00 06/21/19 08:59 05/22/19 08:27 Benazepril HCl (Lotensin) 20 mg DAILY ORAL 05/23/19 09:00 06/22/19 08:59 Famotidine (Pepcid) 20 mg BID ORAL 05/22/19 09:00 06/21/19 08:59 05/22/19 17:28 Finasteride (Proscar) 5 mg DAILY ORAL 05/22/19 09:00 06/21/19 08:59 05/22/19 08:27 Heparin Sodium (Porcine) (Heparin 5000 units/ml) 5,000 units EVERY 12 HOURS SUBQ 05/20/19 09:00 06/19/19 08:59 05/22/19 21:58 Ondansetron HCl (Zofran) 4 mg Q6H PRN IVP Nausea & Vomiting 05/19/19 22:00 06/18/19 21:59 Piperacillin Sod/ Tazobactam Sod 3.375 gm/Sodium Chloride 110 ml @ 27.5 mls/hr EVERY 8 HOURS IVPB 05/19/19 22:00 05/24/19 21:59 05/23/19 06:12 Angel Barrera MD May 23, 2019 08:43
[2019-05-23] MEDS: Heparin 5000 units/ml inj SUBQ SCH (09:00)
[2019-05-23] MEDS ORDERED: Benazepril 10mg tab ORAL SCH (09:00)
[2019-05-23] MEDS: Pancrelipase Dr Cap ORAL SCH (09:11)
[2019-05-23 12:00] VITALS: BP 121/74
--- NOTE | 2019-05-23 12:35 | NUR ---
CASE MANAGEMENT:REVIEW 05/23/19 SI: CHOLECYSTITIS. SEPSIS. EMPYEMA LUNG S/P MRCP (-) FOR COMMON BILE DUCT STONES T 97.7 HR 61 RR 20 B/P 121/74 SATS 94% ON RA NO LABS TODAY IS: IV ZOSYN Q8HRS ZENPEP PO QD PEPCID PO BID PROSCAR PO QD HEPARIN SUBQ Q12H : TELEMETRY STATUS DCP: FROM HOME
--- NOTE | 2019-05-23 15:15 | General Progress Note ---
Assessment/Plan Assessment/Plan: Assessment - Cholelithiasis - declining LFT, likely passed stone - loculated pleural effusion / prior lung infection Recommendations - po diet as tolerated - follow labs - d/c planning - eventual lap alecia Subjective Allergies: Coded Allergies: No Known Allergies (Unverified , 05/19/19) Subjective Feels better no abd pain tolerating PO (+) BM Objective Last 24 Hour Vital Signs Date Time Temp Pulse Resp B/P (MAP) Pulse Ox O2 Delivery O2 Flow Rate FiO2 05/23/19 12:00 97.7 61 20 121/74 (90) 94 05/23/19 12:00 61 05/23/19 09:11 125/75 05/23/19 09:00 Room Air 05/23/19 08:00 98.1 64 18 125/75 (92) 95 05/23/19 08:00 68 05/23/19 06:34 62 16 96 Nasal Cannula 2.0 28 05/23/19 06:34 96 Nasal Cannula 2.0 28 05/23/19 04:00 65 05/23/19 04:00 97.9 65 18 116/73 (87) 98 05/23/19 00:00 73 05/23/19 00:00 98.1 73 18 123/71 (88) 97 05/22/19 21:00 Nasal Cannula 2.0 05/22/19 20:00 60 05/22/19 20:00 97.9 60 18 128/70 (89) 98 05/22/19 19:53 97 Nasal Cannula 2.0 28 05/22/19 19:53 70 18 98 Nasal Cannula 2.0 28 05/22/19 16:00 98.6 57 20 130/79 (96) 98 05/22/19 16:00 60 Intake and Output 05/22/19 05/23/19 19:00 07:00 Intake Total 280 ml 120 ml Balance 280 ml 120 ml Intake Oral 280 ml 120 ml # Voids 3 3 # Bowel Movements 1 Height (Feet): 5 Height (Inches): 6.00 Weight (Pounds): 147 Objective WDWN man NCAT supple CTA RRR abd soft ND NT no edema non focal Sachin Nesbitt MD May 23, 2019 15:15
--- NOTE | 2019-05-23 18:00 | NUR ---
Discharge: Patient is being discharged from medical care. Awake, alert and oriented x3. After care instructions, including referral to community resources were given. Patient verbalized understanding of After care instructions; at this time patient does not request medications, equipment or placement. Patient signed patient consent in the medical record for patient destination upon discharge. All medical devices such as IV, youth nutritional monitor and ID band were removed. Patient ambulated out with and RN all personal belongings with steady gait. Pt will knot picker cloth the Levofloxacin from [facility] pharmacy in [facility] and [facility]
--- NOTE | 2019-05-23 19:00 | Progress Note ---
DATE: 05/23/2019 CARDIOLOGY PROGRESS NOTE SUBJECTIVE: The patient has no nausea, vomiting, or abdominal pain and is tolerating his diet. OBJECTIVE: VITAL SIGNS: Blood pressure 121/74, pulse 61, and respirations 20. LUNGS: Clear. CARDIAC: Regular. ABDOMEN: Soft. No focal tenderness, guarding, or rebound. EXTREMITIES: No edema. IMPRESSION: 1. Recovering transaminitis following presumed stone being passed due to underlying cholelithiasis. 2. Chronic lung disease with loculated pleural effusion. 3. Hypertension, controlled. PLAN: 1. Complete oral antimicrobials by oral route for additional 3 days. 2. Continue with low-fat diet. 3. Outpatient follow-up for cholecystectomy long-term. 4. Discharge plan discussed with the patient in detail. Haider Zuleta M.D. DR: MIROSLAVA JOB#: [id number] CC:
[2019-05-24] MEDS ORDERED: Levofloxacin 500mg tab ORAL SCH (09:00)
--- NOTE | 2019-05-25 12:22 | Discharge Summary ---
Discharge Summary Discharge Summary _ DATE OF ADMISSION: 05/19/2019 DATE OF DISCHARGE 05/23/2019 DISCHARGED BY: REASON FOR ADMISSION: 78 years old male with past medical history of lung empyema, cholecystitis, came to the doctor's office, complaining of abdominal pain with associated nausea and discomfort. Patient also reported feeling feverish. He subsequently was sent by his physician to emergency room for further evaluation. In emergency department patient noted to have elevated LFT. CT of the abdomen and pelvis revealed gallbladder wall thickening and cholelithiasis , concerning for possible acute cholangitis. Laboratory work-up revealed no leukocytosis, stable hemoglobin and hematocrit. Stable renal parameters. Potassium 3.4. Troponin negative. Urinalysis revealed no evidence of urinary tract infection. Urine toxicology screen was negative. Serum salicylate and alcohol were negative. Chest x-ray demonstrated no acute cardiopulmonary pathology. CTA of the chest revealed no evidence of acute pulmonary emboli or other acute thoracic or vascular pathology. CTA also revealed evidence of likely old TB. Patient subsequently admitted for further management CONSULTANTS: pulmonary Dr. Barrera GI specialist Dr. Jones psychiatrist Dr. Wall [facility] COURSE: Patient admitted to telemetry floor. Stone Spreader Operator, general surgeon, and GI specialist followed. Patient initially was kept n.p.o., on the IV fluids. Patient started on empiric antibiotic. Supplemental oxygen titrated and provided as needed to keep pulse oximetry above 92%. Pulmonary toilet via handheld nebulizing with bronchodilator was on standby as needed. GI prophylaxis provided. Blood cultures were negative. Potassium was replaced. Patient undergone abdominal ultrasound, which revealed gallbladder wall thickening, nonspecific. Both kidneys appeared unremarkable. Sonographic Garcia sign was negative. Common bile duct 3.7 mm. Lipase was within normal limits. Patient also undergone abdominal MRI, which revealed cholelithiasis with wall thickening, no evidence of choledocholithiasis or biliary ductal obstruction. Patient started on diet as tolerated. Antiemetic provided as needed. Pain management was addressed. Supportive care provided. LFT were trending down. AST from initial 396 down to 49, and ALT from 151 down to 89. Per GI specialist, rapid decrease in transaminitis along with relatively non- tender abdomen on exam and negative sonographic Garcia , suggested that he may had transient obstructive process , T possibly due to passed stone . Cholecystitis would be less likely, given the lack of leukocytosis and lack of tenderness. Diet was advanced as tolerated , and patient was able to tolerate diet. Patient was recommended eventually to have laparoscopic cholecystectomy. General surgeon closely followed . All imaging reviewed. LFT trending down, lipase within normal limits. According to surgeon, no acute surgical intervention was required at this time. Patient was informed that he eventually will need laparoscopic cholecystectomy. Stone Spreader Operator followed. Patient with a history of prior TB, s/p treatment. Lungs showed scarring , which was chronic and significant fibrotic changes. Also noted traction bronchiectasis. Antihypertensive and anti-failure regimen was continued. IV fluids discontinued after patient was able to tolerate fluid. Echocardiogram revealed preserved ejection fraction of 60% with mild left ventricular hypertrophy. No evidence of wall motion abnormality. No evidence of pericardial effusion. Right ventricular systolic pressure of 39 , consistent with mild pulmonary hypertension. DVT and GI prophylaxis provided. Electrolytes corrected as needed. Blood pressure was managed with MARLENE inhibitor and remained stable. Patient started on Zenpep and low-fat diet. Patient clinically stabilized. Transaminitis resolved , presumed to be related to passed stone secondary to underlying cholelithiasis. Antibiotic changed to oral to be continued for additional 3 days. Patient started on low-fat diet and was able to tolerate diet. Patient will need outpatient follow-up with primary care provider , and eventual referral for laparoscopic cholecystectomy at some point. Patient was ready for discharge home. FINAL DIAGNOSES: Sepsis Cholelithiasis Elevated LFT, likely due to passed stone -declining Pleural effusion History of prior TB , status post treatment Chronic lung disease with lung scarring Traction bronchiectasis Hypoxemia Anemia Hypertensive heart disease Mild pulmonary hypertension DISCHARGE MEDICATIONS: List of medication was sent with patient DISCHARGE INSTRUCTIONS: Patient was discharged home. Follow up with primary care provider in one week. I have been assigned to dictate discharge summary for this account. I was not involved in the patient's management. Genesis Wilson NP May 25, 2019 12:22
--- NOTE | 2019-05-25 14:58 | NUR ---
*-* INSURANCE *-* ALL CLINICALS AND REVIEWS HAVE BEEN FAXED TO: [facility] P: [phone] F: [phone] (FAX CLINICALS)
--- NOTE | 2019-05-26 10:00 | Progress Note ---
DATE: 05/20/2019 CARDIOLOGY AND INTERNAL MEDICINE PROGRESS NOTE SUBJECTIVE: The patient feels better today. No nausea, vomiting. No abdominal discomfort. No recurring fevers or chills. He remains NPO on IV fluids. OBJECTIVE: VITAL SIGNS: T-max 102 yesterday, now afebrile, blood pressure 122/73, pulse 77, respirations 22. HEENT: Conjunctivae pink. Oropharynx clear. NECK: Supple. Jugular venous pressure normal. LUNGS: Scattered rhonchi. CARDIAC: Regular rhythm and rate. Normal S1, S2 with no murmur. ABDOMEN: Soft. No focal tenderness, guarding, or rebound. EXTREMITIES: Good pulses. No edema. LABORATORY DATA: White count 9.5, hemoglobin 12.9. Sodium 140, potassium 3.6, bicarbonate 26, magnesium 1.5, BUN 14, creatinine 1. AST, ALT decreased to 237/184, alkaline phosphatase is 93. Pro-natriuretic peptide is 1000 with albumin 3. IMPRESSION: 1. Possible cholecystitis versus passed stone i.e. choledocholithiasis, recovering now with decreasing liver function studies. 2. Hypomagnesemia. 3. Mild protein-calorie malnutrition. 4. History of empyema. 5. Chronic lung disease. 6. Acute on chronic diastolic congestive heart failure. 7. History of pulmonary empyema and pulmonary tuberculosis, status post treatment. PLAN: 1. Initiate diet. 2. Decrease IV fluids. 3. MRCP. 4. Respiratory hygiene. 5. IV magnesium. 6. Further recommendations to follow results of the aforementioned workup including echocardiogram for assessment of left ventricular function. Haider Zuleta M.D. DR: NEGRITO JOB#: [id number] CC:
--- NOTE | 2019-05-26 10:00 | History and Physical Report ---
DATE OF ADMISSION: 05/19/2019 REASON FOR ADMISSION: Possible acute cholecystitis. HISTORY OF PRESENT ILLNESS: This is a 78-year-old [place] male, who presented to the emergency room with abdominal pain and nausea after drinking some soda. He also felt feverish but did not have chills and did not vomit. PAST MEDICAL HISTORY: Includes pulmonary tuberculosis, history of empyema with drainage, prostatic hypertrophy, osteoarthritis, hyperlipidemia, erectile dysfunction, pancreatic insufficiency. MEDICATIONS: Prior to admission, reviewed and reconciled. ALLERGIES: None known. FAMILY HISTORY: Noncontributory. SOCIAL HISTORY: Nonsmoker. No alcohol or substance abuse. REVIEW OF SYSTEMS: He has subjective fevers. There is no loss of vision or hearing. No sinus pain. He has cough. He denies any wheezing. There is no history of heart attack or high blood pressure. No history of diabetes or thyroid disorder. No history of seizure or stroke. He does have prostatic hypertrophy and erectile dysfunction. He is on Sildenafil. PHYSICAL EXAMINATION: VITAL SIGNS: Temperature max 102, blood pressure 122/64, heart rate 112, respiratory rate 24. HEENT: Normocephalic and atraumatic. Conjunctivae pink. Sclerae are anicteric. Mucous membranes moist. Oropharynx clear. NECK: Supple. Trachea midline. No adenopathy. No thyromegaly. LUNGS: With diminished breath sounds and rhonchi. CARDIAC: Regular rhythm and rate. Normal S1, S2 with a fourth heart sound. ABDOMEN: Soft, nontender. No guarding or rebound. EXTREMITIES: Without clubbing, cyanosis, or edema. SKIN: Intact. NEUROLOGIC: Nonfocal. LABORATORY AND DIAGNOSTIC DATA: EKG with sinus tachycardia and left atrial enlargement. White count 8.6 and hemoglobin 14.3. ABG 7.44, 37, 158. Sodium 136, potassium 3.4, bicarb 29, BUN 16, creatinine 1.1, glucose 128. AST and ALT 396/151, alkaline phosphatase 133, albumin 3.7. Natriuretic peptide 302. Lactic acid and troponin were normal. Ammonia Abdominal CAT scan was notable for cholelithiasis, gallbladder wall thickening, colonic thickening, bladder thickening, right pleural fluid collection. Chest x-ray with chronic upper lobe pleural and parenchymal disease. IMPRESSION: 1. Abdominal pain with transaminitis and abnormal CAT scan suggestive of choledocholithiasis, sepsis, history of empyema of the lung. 2. History of pulmonary tuberculosis. 3. Acute on chronic diastolic congestive heart failure. 4. Hypokalemia. PLAN: 1. Inpatient hospitalization. 2. Antimicrobial. 3. NPO, IV fluid hydration. 4. Follow up liver function studies. 5. Abdominal biliary ultrasound. 6. GI, Surgical, and Pulmonary consultations. Haider Zuleta M.D. DR: Taylor JOB#: [id number] CC:
== END 2019-05-23 17:56 | disposition home or self-care (01) | DRG 871 ==
LOC: EDSEX 14:28 → EDBD 14:28 → EMR 15:23 → EDBEDREQ 15:56 → 2E 18:20
DX: A41.9 Sepsis, unspecified organism (principal); I50.33 Acute on chronic diastolic (congestive) heart failure; K80.10 Calculus of gallbladder with chronic cholecystitis without obstruction; E44.1 Mild protein-calorie malnutrition; J47.9 Bronchiectasis, uncomplicated; R09.02 Hypoxemia; D64.9 Anemia, unspecified; I27.20 Pulmonary hypertension, unspecified; J98.4 Other disorders of lung; B90.9 Sequelae of respiratory and unspecified tuberculosis; I11.0 Hypertensive heart disease with heart failure; E83.42 Hypomagnesemia
CPT/HCPCS: 36415; 36600; 71045; 71275; 74177; 74181; 76700; 80053; 80307; 80329; 81003; 82140; 82248; 82550; 82553; 82607; 82746; 82803; 83605; 83690; 83735; 83880; 84443; 84484; 85007; 85025; 85610; 85730; 87040; 93005; 93306; 94640; 94664; 96361; 96365; 99291